=== PATIENT | female | born 1935 | race Caucasian/White ===

== ENCOUNTER 2019-04-16 14:12 | Outpatient (CLI) | payer MEDICARE, SELFPAY ==
--- NOTE | ~2019-04-16 | CT_ITS ---
EXAMINATION: CT abdomen pelvis wo con EXAM DATE: 04/16/2019 14:53 INDICATION: Right flank pain. TECHNIQUE: Spiral CT of the abdomen and pelvis was performed without contrast. Axial, coronal and sag ittal images were reviewed. The dose-length product (DLP) for this examination was 367.06 mGy-cm. T he exposure was tailored according to patient size (auto mA exposure control), and iterative reconstr uction (ASIR) was used as additional dose reduction technique. There is no prior study for compariso n. FINDINGS: Portal and splenic veins are patent. Kidneys enhance symmetrically. There is no hydroneph rosis. The uterus is unremarkable. The bladder is unremarkable. There is a left adrenal gland le nel measuring 3.5 cm, 15 Hounsfield units which is slightly higher than meeting criteria for adenoma , although is still could be a lipid poor adenoma. Gallbladder is unremarkable. No biliary obstruct ion. There is no retroperitoneal or pelvic lymphadenopathy. There is mild to moderate scattered ar teriosclerotic disease. The appendix is normal. The stomach and small bowel are unremarkable. There is moderate amount of c olonic stool. No free intraperitoneal gas. The heart is normal in size. There are no pericardial or pleural effusions. Small amount of basilar opacities likely postinfectious residua. There are n o osteoblastic or osteolytic lesions identified. IMPRESSION: 1. No nephrolithiasis, hydronephrosis or acute intra-abdominal findings. 2. Left adrenal 3.5 cm lesion most likely adenoma but adrenal CT without and with contrast would be confirmatory. 3. Moderate amount of colonic stool. Reviewed, dictated and finalized at location A. NING SPECIALIST IMPRESSION: 1. No nephrolithiasis, hydronephrosis or acute intra-abdominal findings. 2. Left adrenal 3.5 cm lesion most likely adenoma but adrenal CT without and w ith contrast would be confirmatory. 3. Moderate amount of colonic stool.
== END 2019-04-16 14:13 | disposition home or self-care (01) ==
PROVIDERS: PCP Family Medicine; Visit Provider Family Medicine
DX: R10.9 Unspecified abdominal pain (principal); E27.9 Disorder of adrenal gland, unspecified
CPT/HCPCS: 74176

== ENCOUNTER → 2019-04-21 08:59 | Outpatient (CLI) | payer MEDICARE, SELFPAY ==
--- NOTE | ~2019-04-21 | XR_ITS ---
XR thoracic spine 3V DATE: 04/21/2019 09:29 INDICATION: Thoracic back TECHNIQUE: AP, lateral, swimmer views COMPARISON: None FINDINGS: There is prominent dextroscoliosis of the thoracic spine. There is prominent diffuse osteopenia. There are multiple compression fracture deformities of the thoracic spine, most pronounced at T9, wit h severe anterior wedging and loss of height of this vertebral body. There is moderate biconcavity of T8, T7, T6 and a minimum. There is mild biconcavity of T11 and T12. No paraspinal soft tissue thickening is evident. There are displaced subacute or old right eighth through 10th rib fractures. IMPRESSION: Multiple compression fracture deformities of the thoracic spine Reviewed, dictated and finalized at location A.
--- NOTE | ~2019-04-21 | XR_ITS ---
XR_[id number]_CR DATE: 04/21/2019 09:29 INDICATION: Rib fractures TECHNIQUE: PA chest. 3 views of the right ribs. COMPARISON: 01/20/2016 portable AP chest FINDINGS: Healing or healed displaced posterolateral right eighth, ninth and 10th rib fractures are n oted. Multiple thoracic spine fractures are noted. Diffuse osteopenia. Mild cardiomegaly. Aortic calcification. No hilar or mediastinal enlargement. No pulmonary infiltrate or consolidation, pleural effusion or pulmonary vascular congestion or pneumo thorax is evident. IMPRESSION: Subacute or old right eighth through 10th rib fractures and multiple thoracic spine fract ures Diffuse osteopenia Mild cardiomegaly Aortic atherosclerosis Reviewed, dictated and finalized at Location A. Reviewed, dictated and finalized at location A. IMPRESSION: Subacute or old right eighth through 10th rib fractures and multipl e thoracic spine fractures Diffuse osteopenia Mild cardiomegaly Aortic atherosclerosis
== END ==
PROVIDERS: PCP Family Medicine; Visit Provider Family Medicine
DX: M54.6 Pain in thoracic spine (principal); Z87.81 Personal history of (healed) traumatic fracture; M85.88 Other specified disorders of bone density and structure, other site; I51.7 Cardiomegaly; I70.0 Atherosclerosis of aorta
CPT/HCPCS: 71101; 72072

== ENCOUNTER 2019-06-17 07:43 | Outpatient (CLI) | payer MEDICARE, SELFPAY ==
--- NOTE | ~2019-06-17 | US_ITS ---
US right upper quadrant INDICATION: Right upper quadrant pain PROCEDURE: Realtime right upper abdominal ultrasound. COMPARISON: CT dated 04/16/2019 FINDINGS: The pancreas is normal without focal mass or pancreatic ductal dilation. Liver echotexture is normal without focal mass or intrahepatic biliary dilatation. There is normal directional flow i n the portal vein. The gallbladder is normal without stones, gallbladder wall thickening or pericholecystic fluid. Comm on bile duct measures 4 mm. No sonographic Smith's sign. IMPRESSION: 1: Normal limited abdominal ultrasound. Reviewed, dictated and finalized at location A.
== END 2019-06-17 07:44 | disposition home or self-care (01) ==
PROVIDERS: PCP Family Medicine; Visit Provider Family Medicine
DX: R10.11 Right upper quadrant pain (principal)
CPT/HCPCS: 76705

== ENCOUNTER 2020-03-10 10:18 | Emergency (ER) | payer MEDICARE, SELFPAY ==
--- NOTE | ~2020-03-10 | XR_ITS ---
CANCELLED REPORT Duplicate dictation. Images and final report on Acc# [id number] and report # [id number] 03/22/2020 EXAMINATION: XR abdomen obstructive series EXAM DATE: 03/10/2020 12:22 INDICATION: Constipation. TECHNIQUE: Frontal upright projection of the upper abdomen, frontal projection of the lower abdomen for interpretation. There is no prior study for comparison. FINDINGS: There is moderate thoracic levoscoliosis, mild to moderate thoracolumbar dextroscoliosis. There is moderate to large amount of colonic stool and gas. No small bowel dilation, nonobstructive bowel gas pattern. There are no suspicious calcifications identified. There is no organomegaly suspected. Lung bases are unremarkable. Old right rib fractures. IMPRESSION: Moderate to large amount of colonic stool. Reviewed, dictated and finalized at location A. 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
--- NOTE | ~2020-03-10 | XR_ITS ---
EXAMINATION: XR abdomen obstructive series DATE: 03/10/2020 12:31 INDICATION: Constipation. TECHNIQUE: Upright and supine views of the abdomen on 3 radiographs were obtained. COMPARISON: CT abdomen and pelvis 04/16/2019 FINDINGS: There are no dilated loops of bowel. There is a large volume of stool in the colon. No free intraperitoneal gas. There are multiple old healed right rib fractures. IMPRESSION: 1. Large volume of stool in the colon. Reviewed, dictated and finalized at location A. ON STOMPER
[2020-03-10 10:42] VITALS: BP 132/68; PULSE 88; RESP 18; TEMP 36.2; O2SAT 98
--- NOTE | 2020-03-10 11:45 | PC.NURSE ---
Patient unable to provide urine specimen at this time. Refusing straight cath, Dr. Vela notified.
--- NOTE | 2020-03-10 11:45 | PC.NURSE ---
Patient unable to provide urine specimen at this time. Refusing straight catheter, Dr. Vela notified.
[2020-03-10 12:54] LABS: Basophils Absolute Auto 0.1 K/mm3 (0.0-0.1); Basophils Percent Auto 0.7 % (0.2-1.2); Eosinophils Absolute Auto 0.2 K/mm3 (0-0.3); Eosinophils Percent Auto 1.7 % (0-4.4); Hematocrit 43.7 % (37.0-47.0); Hemoglobin 14.1 g/dL (12.0-15.0); Immature Granulocyte Absolute 0.05 K/mm3 (0.00-0.031); Immature Granulocyte Percent A 0.5 % (0-0.5); Lymphocytes Absolute Auto 1.57 K/mm3 (0.9-3.2); Lymphocytes Percent Auto 15.9 % (18.3-44.2); Mean Corpuscular HGB Conc 32.3 g/dl (32-36); Mean Corpuscular Hemoglobin 29.9 pg (26-34); Mean Corpuscular Volume 92.8 fl (80-100); Mean Platelet Volume 10.2 fl (7.4-10.4); Monocytes Absolute Auto 0.9 K/mm3 (0.1-0.6); Monocytes Percent Auto 9.4 % (2.6-8.5); Neutrophils Absolute Auto 7.1 K/mm3 (1.3-6.7); Neutrophils Percent Auto 71.8 % (45.5-73.1); Platelet Count Result 214 k/mm3 (150-375); Red Blood Count 4.71 M/mm3 (4.2-5.4); Red Cell Distribution Width 12.6 % (11.5-14.5); White Blood Count 9.9 K/mm3 (4.5-10.0)
[2020-03-10 13:16] LABS: Alanine Aminotransferase 16 U/L (4-35); Alkaline Phosphatase 83 U/L (38-126); Anion Gap 4 mmol/L (8-16); Aspartate Amino Transferase 27 U/L (14-36); Bilirubin,Total 0.5 mg/dL (0.2-1.3); Blood Urea Nitrogen 18 mg/dL (7-17); Calcium 9.4 mg/dL (8.4-10.2); Carbon Dioxide 29 mmol/L (22-30); Chloride 102 mmol/L (98-107); Estimated CRCL calculation 36 ml/min; Estimated Glomerular Filt Rate > 60; Glucose 95 mg/dL (65-105); Potassium 4.4 mmol/L (3.4-5.0); Sodium 135 mmol/L (137-145)
[2020-03-10 13:38] VITALS: BP 131/57; PULSE 83; RESP 18; O2SAT 100
--- NOTE | 2020-03-10 14:06 | ED.ABDPAIN ---
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, and is worried that her mom had this and had to have an operation She has not had any rectal bleeding she has not had a fever her appetite is okay No prior abdominal operations of any sort Pertinent past history: constipation Onset (ago): day(s) Related Data Home Medications Medication Instructions Recorded Confirmed No Home Medications 03/10/20 03/10/20 Allergies Allergy/AdvReac Type Severity Reaction Status Date / Time Penicillins Allergy Intermediate Palpitations Verified 03/10/20 10:48 RASH Review of Systems Review of Systems: All systems reviewed & are unremarkable except as noted in HPI and below Constitutional: Constitutional: Denies chills, Denies fatigue, Denies fever(s), Denies headache(s) and Denies weakness Eyes: Eyes: Reports no additional eye complaints and Denies change in vision ENT: Denies headache(s) Cardiovascular: Cardiovascular: Denies chest pain, Denies leg edema, Denies palpitations and Denies dyspnea Respiratory: Respiratory: Denies cough and Denies dyspnea Gastrointestinal: Gastrointestinal: Denies abdominal pain, Denies bloating, Reports constipation, Denies diarrhea, Denies nausea and Denies vomiting Genitourinary: Genitourinary: Denies hematuria, Denies urinary frequency, Reports nocturia and Denies dysuria Musculoskeletal: Musculoskeletal: Denies deformity, Denies arthralgias, Denies joint swelling, Denies muscle weakness and Denies numbness Integumentary/Breasts: Skin/Breast: Denies rash and Denies wounds Neurologic: Denies headache(s), Denies focal weakness, Denies numbness and Denies weakness Psychiatric: Psychiatric: Reports no additional psychiatric complaints Endocrine: Endocrine: Denies fatigue and Denies palpitations Hematologic/Lymphatic: Hematologic/Lymphatic: Denies easy bleeding and Denies easy bruising Allergic/Immunologic: Allergic/Immunologic: Denies wheezing [facility] Social History Social History Gender identity (if verbalized by the patient): Female Exam Const: General: well developed, alert and awake Orientation/consciousness: patient oriented x3 (alert) Limitations: no limitations Other: Elderly, frail HENMT: Head: normocephalic and atraumatic Ears: external ears normal General nose exam: No nasal discharge present and no epistaxis Face and sinus: face symmetric Eyes: Conjunctivae: conjunctivae normal Sclera: sclerae normal EOM: EOMs intact bilaterally Neck: Neck: normal visual inspection, supple and no JVD Chest: Chest palpation & inspection: deferred Resp: Effort & Inspection: normal respiratory effort Auscultation: clear to auscultation bilaterally, no rales, no rhonchi, no wheezes and other (BS =) Cardio: Rate: regular rate Rhythm: regular rhythm Heart sounds: no gallops and no murmurs GI: Inspection: normal to inspection GI Palp: Yes Soft to palpation and No Tenderness to palpation present (GI) Other: There is no tenderness, there does seem to be some palpable stool along the course of the descending colon on the left side On rectal there is a lot of firm stool but it is not really a large impacted mass but rather it seems like a bunch of separate lifesaver sized chunks : General: Yes no CVA tenderness Back/Spine/Pelvis: Back: no CVA tenderness Thoracic/Lumbar Spine: thoracic and lumbar spine norm
--- NOTE | 2020-03-10 15:30 | PC.NURSE ---
Patient using BSC, small BM noted.
[2020-03-10] MEDS: MAGNESIUM CITRATE 300 ML BTL PO (15:59)
--- NOTE | 2020-03-10 16:47 | PC.NURSE ---
Patient had large BM at this time. Refusing miralax and dulcolax suppository at this time.
[2020-03-10 16:53] LABS: Free T4 Free Thyroxine 1.29 ng/mL (0.78-2.19)
[2020-03-10 18:28] VITALS: BP 128/64; PULSE 88; RESP 20; O2SAT 99
== END 2020-03-10 18:31 | disposition home or self-care (01) ==
PROVIDERS: Emergency Provider Emergency Medicine; PCP Family Medicine
DX: K59.00 Constipation, unspecified (principal)
CPT/HCPCS: 36415; 74019; 80053; 84439; 84443; 85025; 99283; A9270

== ENCOUNTER 2022-02-07 09:06 | Outpatient (CLI) | payer MEDICARE, SELFPAY ==
--- NOTE | ~2022-02-07 | XR_ITS ---
Clinical Indication: Shortness of breath PA and lateral views of the chest: Comparison: 01/20/2016 Findings: The lungs are clear, without evidence of focal consolidation or pleural effusion. Cardiome diastinal silhouette is within normal limits. There is kyphosis of the thoracic spine with severe com pression deformity of what is probably T12. Moderate to severe compression fracture of what is probab ly T8 also present.. Impression: Clear lungs. Thoracic spine compression fractures, probably of T8 and T12. Reviewed, dictated and finalized at location M. 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 Thoracic spine compression fractures, probably of T8 and T12.
== END 2022-02-07 09:07 | disposition home or self-care (01) ==
PROVIDERS: PCP Family Medicine; Visit Provider Family Medicine
DX: R06.02 Shortness of breath (principal); S22.060A Wedge compression fracture of T7-T8 vertebra, initial encounter for closed fracture; S22.080A Wedge compression fracture of T11-T12 vertebra, initial encounter for closed fracture
CPT/HCPCS: 71046

== ENCOUNTER → 2022-06-19 09:23 | Outpatient (CLI) | payer MEDICARE, SELFPAY ==
--- NOTE | ~2022-06-19 | DEXA_ITS ---
Bone Density Report Name: ROXANNE HENDRICKSON I Age: 87 Sex: Female Ethnicity: White Date of : 1935 Indication: postmenopausal osteoporosis; prior fracture; Referring Provider: MO REEDER Study: Bone densitometry was performed. Exam Date: June 19, 2022 Accession number: [id number] Bone Density: Region BMD T-score Z-score Classification AP Spine (L1-L4) 0.746 -2.7 0.1 Osteoporosis Femoral Neck (Left) 0.576 -2.5 0.1 Osteoporosis Total Hip (Left) 0.786 -1.3 1.1 Osteopenia Femoral Neck (Right) 0.572 -2.5 0.0 Osteoporosis Total Hip (Right) 0.752 -1.6 0.8 Osteopenia Total Hip Mean 0.769 -1.5 1.0 Osteopenia World Health Organization criteria for BMD impression classify patients as: Normal (T-score at or above -1.0), Osteopenia (T-score between -1.0 and -2.5), or Osteoporosis (T-score at or below -2.5). 10-year Fracture Risk: FRAX not reported because: Some T-score for Spine Total or Hip Total or Femoral Neck at or below -2.5 Prior hip or vertebral fracture Previous Exams: Region Exam Age BMD T-score BMD Change BMD Change Date g/cm2 vs Baseline vs Previous AP Spine(L1-L4) 06/19/2022 87 0.746 -2.7 -0.009 0.050* 09/20/2009 74 0.695 -3.2 -0.059 -0.032* 08/24/2007 72 0.728 -2.9 -0.027 -0.007 07/10/2005 70 0.735 -2.8 -0.020 -0.020 04/22/2003 68 0.755 -2.7 Total Hip(Left) 06/19/2022 87 0.786 -1.3 0.011 -0.017 09/20/2009 74 0.803 -1.1 0.028 -0.048* 08/24/2007 72 0.852 -0.7 0.077 -0.083* 07/10/2005 70 0.934 -0.1 0.159 0.159 04/22/2003 68 0.775 -1.4 Total Hip(Right) 06/19/2022 87 0.752 -1.6 -0.025 -0.065* 09/20/2009 74 0.817 -1.0 0.039 -0.059* 08/24/2007 72 0.876 -0.5 0.098 -0.059* 07/10/2005 70 0.935 -0.1 0.158 0.158 04/22/2003 68 0.777 -1.3 *Denotes significance at 95% confidence level, LSC for AP Spine = 0.022 g/cm2, LSC for Total Hip = 0.027 g/cm2 Clinical Information Provided by Patient: Have had a previous hip or vertebral fracture Has had a low trauma fracture Has used the following medications: Vitamin D, MTV Patient maximum height was 55.0 Menopause Age: 51 No regular weight bearing exercise Onset of menses at age 12 Number of children 4 Impression: T
== END ==
PROVIDERS: PCP Family Medicine; Visit Provider Family Medicine
DX: M81.0 Age-related osteoporosis without current pathological fracture (principal); M85.852 Other specified disorders of bone density and structure, left thigh; M85.851 Other specified disorders of bone density and structure, right thigh
CPT/HCPCS: 77080

== ENCOUNTER 2023-04-05 09:57 | Inpatient (IN) | payer MEDICARE, SELFPAY ==
[2023-04-05] VITALS (14 sets, daily range): BP systolic 101–152; BP diastolic 67–103; PULSE 81–116; RESP 16–29; TEMP 35.9–36.6; O2SAT 92–98; BMI 25.4
--- NOTE | ~2023-04-05 | NM_ITS ---
EXAMINATION: NM glory stress w perfusion DATE: 04/09/2023 13:07 INDICATION: Chest pain. New onset congestive heart failure. TECHNIQUE: Rest images were obtained following intravenous administration of 9.2 mCi Tc99m tetrofosmi n (Myoview). The patient was infused intravenously with Lexiscan (Regadenoson). Then, 32.8 mCi Tc99m tetrofosmin (Myoview) was administered intravenously, and stress images were obtained. Data was recon structed into short axis and horizontal and vertical long axis SPECT images. Gated SPECT images were also obtained. COMPARISON: None. FINDINGS: Large severe perfusion defect involving the apical segment and all of the periapical and mi d segments and extending with less severity into the basilar anteroseptal and basilar posterior septa l segments. This is reversible in the mid anterior and mid anterolateral segments consistent with isc hemia. The remainder is either nonreversible or largely nonreversible consistent with infarct with godinez perimposed mild partially reversible ischemia involving the apical segments and the mid inferior, inf eroseptal and inferolateral segments. There is left ventricular enlargement with calculated end-diast olic volume of 210 mL. There is dyskinesis at the apex, periapical and mid septal segments with hypok inesis in the remaining mid segments. Left ventricular ejection fraction measures 32%. IMPRESSION: 1. Large region of moderate to severe decreased perfusion apical predominance consistent with infarct with superimposed mild ischemia involving the majority of the left anterior descending coronary loli ry vascular distribution and significant portions of both the circumflex and right coronary artery va scular distributions as detailed above. 2. Left ventricular enlargement with moderately decreased ejection fraction measuring 32%. Reviewed, dictated and finalized at location B. GER CHILD IMPRESSION: 1. Large region of moderate to severe decreased perfusion apical predominance c onsistent with infarct with superimposed mild ischemia involving the majority o f the left anterior descending coronary artery vascular distribution and signif icant portions of both the circumflex and right coronary artery vascular distri butions as detailed above. 2. Left ventricular enlargement with moderately decreased ejection fraction silvestre suring 32%.
--- NOTE | ~2023-04-05 | XR_ITS ---
XR chest 2V 04/05/2023 11:29 Indication: Shortness of breath Procedure: AP and lateral views of the chest Comparison: 02/07/2022 Findings: Cardiomegaly with interstitial edema. Small pleural effusions. No pneumothorax. No acute os seous abnormality. Impression: 1: Cardiomegaly with interstitial edema. 2: Small pleural effusions. Reviewed, dictated and finalized at location A. 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 2: Small pleural effusions.
--- NOTE | ~2023-04-05 | US_ITS ---
EXAMINATION: US venous doppler [facility] DATE: 04/06/2023 16:19 INDICATION: Bilateral lower extremity edema . TECHNIQUE: Grayscale images without and with compression and Doppler images of the bilateral lower ex tremity veins were obtained. COMPARISON: None FINDINGS: The right common femoral vein, profunda (deep) femoral vein, femoral vein, popliteal vein, peroneal v ein, posterior tibial veins, gastrocnemius vein, and greater saphenous vein are patent. The left common femoral vein, profunda (deep) femoral vein, femoral vein, popliteal vein, peroneal v ein, posterior tibial veins, gastrocnemius vein, and greater saphenous vein are patent. IMPRESSION: Patent bilateral lower extremity veins. No evidence of deep venous thrombosis. Reviewed, dictated and finalized at location K. ER
--- NOTE | ~2023-04-05 | XR_ITS ---
Portable chest x-ray Comparison: 04/05/2023 Clinical History: CHF Findings: Probable minimal bilateral pleural effusions and minimal bibasilar pulmonary edema. Cardi omediastinal silhouette is stable. Bones and soft tissues are unremarkable. Impression: Probable minimal pleural effusions and minimal bibasilar pulmonary edema. Findings are improved from prior exam. Reviewed, dictated and finalized at location . 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 Findi ngs are improved from prior exam.
--- NOTE | ~2023-04-05 | CT_ITS ---
EXAMINATION: CTA chest PE protocol DATE: 04/05/2023 12:44 IMPROVEMENT MANAGER INDICATION: Shortness of breath. Elevated d-dimer. TECHNIQUE: Computed tomographic angiography (CTA) of the chest was performed with 100 mL Omnipaque-35 0 intravenous contrast. The dose-length product was 194.00 mGy-cm. Maximum intensity projection 3D-re constructions of the aorta and other arteries were constructed by the technologist on a separate work station. Automated exposure control and iterative reconstruction technique were employed. COMPARISON: Comparison to multiple prior studies sequentially, with oldest reviewed study dated 01/11. . FINDINGS: Cardiomegaly. Moderate right and small left pleural effusions. No thoracic lymphadenopathy. The study is technically adequate without evidence for pulmonary embolism. No thoracic lymphadenopat hy. Bibasilar dependent atelectasis. No pneumothorax. No evidence for pulmonary embolism. There are patchy groundglass opacities with interlobular septal t hickening. Subpleural band present left upper lobe. Findings suspicious for edema. There are is chron ic burst fractures of T9 and T11. There is mild compression deformity of T8 and T11, likely chronic. IMPRESSION: 1. No evidence for pulmonary embolism. 2: Cardiomegaly with probable mild interstitial edema. 3: Bilateral pleural effusions, right greater than left. 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 Reviewed, dictated and finalized at location A. OVEMENT MANAGER
--- NOTE | 2023-04-05 11:16 | ECG_ITS ---
Measurements Intervals Brothers Rate: 90 P: 67 NV: 203 QRS: -22 QRSD: 132 T: 140 QT: 398 QTc: 488 Interpretive Statements SINUS RHYTHM LEFT BUNDLE BRANCH BLOCK [120+ ms QRS DURATION, 80+ ms Q/S IN V1/V2, 85+ ms R IN I/aVL/V5/V6] ABNORMAL ECG NO PREVIOUS ECG AVAILABLE FOR COMPARISON Electronically Signed On 04-05-2023 14:45:09 INTERNIST by Valentín Rainey M.D.
--- NOTE | 2023-04-05 11:26 | ED.SOB ---
HPI - SOB/Dyspnea General Chief Complaint: Shortness of Breath/Dyspnea <Nikki Sanchez PA-C - Last Filed: 04/06/23 09:22> Stated Complaint: sob <ROOSEVELT Murphy Last Filed: 04/06/23 09:22> Time Seen by Provider: 04/05/23 11:16 <ROOSEVELT Murphy Last Filed: 04/06/23 09:22> Source: patient <ROOSEVELT Murphy Last Filed: 04/06/23 09:22> Mode of arrival: ambulatory <ROOSEVELT Murphy Last Filed: 04/06/23 09:22> Limitations: no limitations <ROOSEVELT Murphy Last Filed: 04/06/23 09:22> History of Present Illness HPI Narrative: This is a 88-year-old female that presents to the emergency department for shortness of breath. Ongoing over the last couple of weeks. Associated with lower extremity edema. Reports she was giving a prescription for furosemide by her PCP, but has not taken it. Denies fever, cough, chest pain. <ROOSEVELT Murphy Last Filed: 04/06/23 09:22> Related Data Home Medications: Home Medications Medication Instructions Recorded Confirmed cholecalciferol (vitamin D3) 25 25 mcg PO DAILY 03/26/22 04/05/23 mcg (1,000 unit) capsule glucosamine-chondroitin 500 mg-400 1 cap PO DAILY 03/26/22 04/05/23 mg capsule wosbhffl-utw-ntcnk ac 400 400 tablet PO DAILY 03/26/22 04/05/23 mcg-calcium carb 500 mg-vit K1 20 mcg tablet (Women's 50 Plus Multivitamin) <Nikki Sanchez PA-C - Last Filed: 04/06/23 09:22> Allergies/Adverse Reactions: Allergies Allergy/AdvReac Type Severity Reaction Status Date / Time Penicillins Allergy Intermediate Palpitations Verified 04/05/23 11:40 RASH lidocaine [From Xylocaine] Allergy Mild Headache Verified 04/05/23 11:40 <ROOSEVELT Murphy Last Filed: 04/06/23 09:22> Review of Systems Review of Systems: CONSTITUTIONAL: Denies fever CARDIOVASCULAR: Reports edema. Denies chest pain RESPIRATORY: Reports dyspnea. 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 Burst fracture of thoracic vertebra Chronic burst fracture at L1. Disorder of adrenal gland, unspecified Elevated blood pressure reading Other kyphosis, thoracic region Primary generalized (osteo)arthritis Pure hypercholesterolemia, unspecified Sciatica, left side <Nikki Sanchez PA-C - Last Filed: 04/06/23 09:22> Surgical History Surgical History: Surgical History History of cataract extraction History of ovarian cystectomy History of right breast biopsy Benign pathology. History of surgery on left wrist (01/2016) Reduction stabilization of left distal radius fracture with external fixator device. <Nikki Sanchez PA-C - Last Filed: 04/06/23 09:22> Family History Family History: Family History Father Malignant neoplasm of prostate Mother Stomach cancer Sibling Autoimmune disease Sibling Amyotrophic lateral sclerosis Sibling Brain cancer <Nikki Sanchez PA-C - Last Filed: 04/06/23 09:22> Social History Social History: Social History Social History: Surrogate medical decision maker: Jair Matta, son. Code status: Full code. Smoking status: Former smoker Second hand tobacco smoke exposure: No Alcohol intake: never Substance use: never Substance use type: does not use Do You Feel Safe in your Home?: Yes Lack of Transportation: No Lack of
[2023-04-05 11:56] LABS: Basophils Percent Auto 0.6 % (0.2-1.2); Eosinophils Absolute Auto 0.1 K/mm3 (0-0.3); Eosinophils Percent Auto 1.5 % (0-4.4); Hematocrit 46.5 % (37.0-47.0); Hemoglobin 14.3 g/dL (12.0-15.0); Immature Granulocyte Absolute 0.02 K/mm3 (0.00-0.031); Immature Granulocyte Percent A 0.3 % (0-0.5); Lymphocytes Absolute Auto 1.11 K/mm3 (0.9-3.2); Lymphocytes Percent Auto 16.4 % (18.3-44.2); Mean Corpuscular HGB Conc 30.8 g/dl (32-36); Mean Corpuscular Hemoglobin 29.5 pg (26-34); Mean Corpuscular Volume 95.9 fl (80-100); Monocytes Absolute Auto 0.6 K/mm3 (0.1-0.6); Monocytes Percent Auto 8.7 % (2.6-8.5); Neutrophils Absolute Auto 4.9 K/mm3 (1.3-6.7); Neutrophils Percent Auto 72.5 % (45.5-73.1); Platelet Count Result 182 k/mm3 (150-375); Red Blood Count 4.85 M/mm3 (4.2-5.4); Red Cell Distribution Width 13.4 % (11.5-14.5); White Blood Count 6.8 K/mm3 (4.5-10.0)
[2023-04-05 12:07] LABS: Alanine Aminotransferase 30 U/L (6-35); Alkaline Phosphatase 86 U/L (38-126); Anion Gap 6 mmol/L (8-16); Aspartate Amino Transferase 33 U/L (14-36); Bilirubin,Total 0.9 mg/dL (0.2-1.3); Blood Urea Nitrogen 30 mg/dL (7-17); Calcium 9.5 mg/dL (8.4-10.2); Carbon Dioxide 27 mmol/L (22-30); Chloride 107 mmol/L (98-107); Estimated Glomerular Filt Rate 59; Glucose 100 mg/dL (65-110); Potassium 4.5 mmol/L (3.4-5.0); Prothrombin Time 14.2 Seconds (11.1-14.7); Sodium 140 mmol/L (137-145)
[2023-04-05 12:08] LABS: Partial Thromboplastin Time 25.3 SECONDS (22.3-36.8)
[2023-04-05 12:11] LABS: D Dimer 1.18 ug/mL (<0.48)
[2023-04-05 12:18] LABS: NT Pro B Type Natriuretic Pept 10400 pg/mL (19.9-100); Troponin I 0.019 ng/mL (0.000-0.034)
[2023-04-05] MEDS: FUROSEMIDE INJ 40 MG/4 ML VIAL IV PUSH (13:02)
--- NOTE | 2023-04-05 15:05 | PM.IMHP ---
H&P: HPI History of Present Illness Date/Time: 04/05/23 15:05 Chief Complaint: Shortness of breath. Narrative: This is an 88-year-old female who has been remarkably healthy over the years with osteoarthritis, osteoporosis, kyphoscoliosis, and hypercholesterolemia who presented to the emergency department for evaluation of shortness of breath. The patient provides the following history. Right around the beginning of the year she started to notice that her ankles would swell throughout the day and become pretty swollen by a nighttime. She has also noticed that she is getting short of breath with exertion, sometime she is short of breath when talking for extended periods of time. She saw her doctor for the symptoms at the end of February and he started her on furosemide 20 mg once a day for a few days to see if that would help although she did not case picker the prescription as she did not know 1 was called in for her. An echocardiogram was also ordered but she has yet to have that done. Her symptoms have gotten progressively worse and she came in today for evaluation. With further questioning she does mention having occasional heaviness in the chest (no pattern and she denies aggravating and alleviating factors) and admits to feeling more tired the last month or so. She is slower to get around the home and perform her daily chores. She denies syncope, near syncope, exertional chest pain, orthopnea, pleuritic pain, palpitations, nausea, vomiting, sweats, and calf pain. In the ED: She was afebrile on arrival with stable vital signs. Labs were significant for a D-dimer 1.18, troponin 0.019, proBNP 42809, albumin 4.0. Chest CTA was negative for pulmonary embolism but did show cardiomegaly with probable mild interstitial edema and bilateral pleural effusions. She received IV furosemide 40 mg x 1 and she is being admitted in this setting for further treatment and evaluation. Review of Systems Review of Systems: Twelve systems were reviewed. No fever, chills, or sweats. No recent cold or flu symptoms. Denies orthopnea. Occasionally she will wake herself up snoring. Appetite has been good. Weight is stable. Except as documented, all other systems were reviewed and are negative. 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 Burst fracture of thoracic vertebra Chronic burst fracture at L1. Disorder of adrenal gland, unspecified Elevated blood pressure reading Other kyphosis, thoracic region Primary generalized (osteo)arthritis Pure hypercholesterolemia, unspecified Sciatica, left side Surgical History Surgical History History of cataract extraction History of ovarian cystectomy History of right breast biopsy Benign pathology. History of surgery on left wrist (01/2016) Reduction stabilization of left distal radius fracture with external fixator device. Family History Family History Father Malignant neoplasm of prostate Mother Stomach cancer Sibling Autoimmune disease Sibling Amyotrophic lateral sclerosis Sibling Brain cancer Social History Social History Social History: Surrogate medical decision maker: Jair Matta, son. Code status: Full code. Smoking status: Former smoker Second hand tobacco smoke exposure: No Alcohol intake: never Substance use: never Substance use type: does not use Do You Feel Safe in your Home?: Yes Lack of Transportation: No Lack of Food: Never True Current Housing: I Have Housing Concerned About Future Housing: No Difficulty Paying Gas/Electric Bills: No Difficulty Paying
--- NOTE | 2023-04-05 15:45 | ADMGEN ---
This patient, Gosia Matta, was admitted to [facility] Surg Room 326-01. Patient/family oriented to hospital policies and general routines including ID bracelet, bed and alarms, visiting hours, pain management, procedures, bathroom and other care routines, personal items, smoking policy, room service/diet, and visiting hours. Information on how to activate the Rapid Response Team has been discussed. Patient/Family are encouraged to report perceived risks to care and to ask questions if they do not understand what they are told or what they should do.
[2023-04-05] MEDS: FUROSEMIDE INJ 40 MG/4 ML VIAL 20 MG IV PUSH (17:15)
[2023-04-06] VITALS (8 sets, daily range): BP systolic 105–123; BP diastolic 46–73; PULSE 76–86; RESP 18–20; TEMP 35.5–36.9; O2SAT 93–98
[2023-04-06 07:02] LABS: Anion Gap 4 mmol/L (8-16); Blood Urea Nitrogen 30 mg/dL (7-17); Calcium 8.7 mg/dL (8.4-10.2); Carbon Dioxide 28 mmol/L (22-30); Chloride 105 mmol/L (98-107); Estimated Glomerular Filt Rate 52; Glucose 98 mg/dL (65-110); Magnesium 2.3 mg/dL (1.6-2.3); Potassium 3.6 mmol/L (3.4-5.0); Sodium 137 mmol/L (137-145)
[2023-04-06] MEDS: FUROSEMIDE INJ 40 MG/4 ML VIAL 20 MG IV PUSH ×2 (08:04→16:33)
[2023-04-06] MEDS: ENOXAPARIN 40 MG/0.4 ML SYRINGE SUB-Q (08:05)
[2023-04-06] MEDS: CHOLECALCIFEROL 1,000 UNITS TABLET 1000 UNITS PO (08:06)
[2023-04-06] MEDS: THERAPEUTIC MULTIVITAMINS/MINERALS TAB (*BKC) 1 TABLET PO (08:06)
[2023-04-06 11:05] LABS: Free T4 Free Thyroxine Reflex 1.49 ng/dL (0.78-2.19)
--- NOTE | 2023-04-06 12:24 | PM.IMPN ---
Progress Note: A&P Assessment and Plan (1) Suspected congestive heart failure: Code(s): R09.89 - Other specified symptoms and signs involving the circulatory and respiratory systems Status: Acute (2) Pleural effusion: Code(s): J90 - Pleural effusion, not elsewhere classified Status: Acute (3) Cardiomegaly: Code(s): I51.7 - Cardiomegaly Status: Acute (4) Elevated blood pressure reading: Code(s): R03.0 - Elevated blood-pressure reading, without diagnosis of hypertension Status: Acute Plan The patient presented to the emergency department for evaluation of increasing swelling and shortness a breath as detailed in HPI. Right around the beginning of the year she started to notice that her ankles were swell throughout the day and become very swollen by the nighttime. She has also noticed that she is getting short of breath with exertion sometimes she is short of breath when talking for extended periods of time. She saw For the symptoms the end of February and see was started her on furosemide 20 mg day for few days to see if that will help although she did not fiber picker the prescription as she did not know Jocelyne are not. An echocardiogram was also ordered but she has yet to have that done. See yet progressively got worse and hence came to the ER for evaluation. Occasionally have a heaviness of the chest with no pattern of aggravating at noon admits to feeling more tired over the last month or so. In the ED she was a vitals. D-dimer was 1.18 troponin was 0.019 [place] [address]29 CTA of the chest was done which negative for PE but did cardiomegaly with probable mild interstitial edema and bilateral pleural effusion. She received a dose of Lasix in the ER further treatment. Continue diuresis with with furosemide 20 mg IV b.i.d. with close monitoring of volume status, renal function, and electrolytes. Echocardiogram ordered and currently pending. 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 No leg swelling. Mild cough since past few weeks. Review of Systems Review of Systems: All systems reviewed & are unremarkable except as noted in HPI and below Exam Narrative: General: Well-developed, elderly female sitting up in bed in no acute distress. HEENT: Wearing corrective lenses. PERRL, EOMI. Sclera anicteric. Oral mucosa moist. Neck: Supple. No significant JVD. Respiratory: Respirations are nonlabored. Lung sounds are a bit diminished at the bases Cardiovascular: Regular rate and rhythm with S1-S2. Gastrointestinal: Abdomen is soft, nontender, and nondistended with positive bowel sounds. Skin: Warm and dry. No rash or lesions on limited exam. Extremities: No cyanosis or clubbing. 1+ josh ankle edema bilaterally. Radial and pedal pulses intact. Neurological: Alert. Cranial nerves 2-12 are grossly intact. No gross focal deficits to casual conversation. Psychiatric: Pleasant and cooperative with normal mood and affect. Judgment and insight intact. Objective Data Vital Signs Vital Signs: Vital Signs - 24 hr 04/05/23 12:47 04/05/23 15:34 04/05/23 16:11 Temperature Pulse Rate 100 88 88 Respiratory Rate 20 18 Blood Pressure 152/103 H 141/98 H Pulse Oximetry 93 98 Oxygen Delivery 04/05/23 16:11 04/05/23 16:11 04/05/23 16:32 Temperature 97.2 F L Pulse Rate 116 H 81 Respiratory Rate 20 Blood Pressure 116/74 Pulse Oximetry 97 Oxygen Delivery Room Air 04/05/23 20:00 04/05/23 20:25 04/05/23 20:00 Temperature 96.6 F L Pulse Rate 88 84 Respiratory Rate 16 Blood Pressure 128/76 Pulse Oximetry 96 Oxygen Delivery Room Air 04/06/23 00:00 04/06/23 00:00 04/06/23 04:00 Temperature 97.2 F L Pulse Rate 79 76 80 Respiratory Rate 18 Blood Press
[2023-04-06 14:37] LABS: Total Triiodothyronine (T3) 1.14 NG/ML (0.97-1.69)
[2023-04-07] VITALS (10 sets, daily range): BP systolic 110–128; BP diastolic 67–84; PULSE 81–99; RESP 16–22; TEMP 36.6–37.3; O2SAT 95–100
--- NOTE | 2023-04-07 | ECHO_ITS ---
Patient Info Name: Gosia Matta Age: 88 years : 1935 Gender: Female Ht: 59 in Wt: 125 lbs BSA: 1.55 m2 HR: 81 bpm BP: 120 / 67 mmHg Heart Rhythm: Sinus Rhythm Technical Quality: Fair Exam Date: 04/07/2023 3:59 PM Exam Location: Echo Lab Patient Status: Outpatient Admit Date: 04/05/2023 Staff Ordering Physician: Estefania Boles PA-C Inspector Rag Sorting: Attending Provider: Jose Vivas MD Referring Physician: Elvi DOBSON; Exam Type: CA echo dop color flow w con Study Info Indications I51.7 - Cardiomegaly Complete two-dimensional, color flow and Doppler transthoracic echocardiogram is performed with contrast to opacify the left ventricle and to improve the deliniation of the left ventricle endocardial borders. Contrast/Agitated Saline Contrast/Ag. Saline: Definity Amount: 1.00 ml Existing IV Access: Yes IV Access Condition: patent with no signs of infiltration Summary 1. Four-chamber cardiac dilation with severely reduced left and right ventricular systolic function. 2. Marked biatrial dilation. 3. Trivial mitral regurgitation resulting from annular dilation. 4. Mild to moderate tricuspid regurgitation also from annular dilation. Left Ventricular Outflow Tract Name Value Normal LVOT 2D LVOT Diameter 1.95 cm LVOT Doppler LVOT Peak Gradient 2 mmHg LVOT Mean Gradient 1 mmHg LVOT VTI 14.48 cm LVOT VTI/AV VTI Ratio 0.62 LVOT Stroke Volume 43.17 ml LVOT CO 3.33 l/min LVOT CI 2.15 L/min/m2 Pulmonic Valve Name Value Normal PV Doppler PV Peak Gradient 2 mmHg PV Regurgitation Doppler OK Peak End Diastolic Velocity 74.67 cm/s Mitral Valve Name Value Normal MV Doppler MV Decel Bertie 515.26 cm/s2 MV PHT 0 s MV Area (PHT) 6.69 cm2 4.00-5.00 MV Diastolic Function MV E Peak Velocity 58.46 cm/s MV A Peak Velocity 56.31 cm/s MV E/A 1.04 MV Decel Time 0 s MV Annular TDI MV E/e' (Septal) 15.83 <=8.00 MV E/e' (Lateral) 5.93 <=8.00 MV E/e' (Ave
[2023-04-07 06:26] LABS: Basophils Percent Auto 0.5 % (0.2-1.2); Eosinophils Absolute Auto 0.2 K/mm3 (0-0.3); Eosinophils Percent Auto 2.4 % (0-4.4); Hematocrit 43.4 % (37.0-47.0); Hemoglobin 13.6 g/dL (12.0-15.0); Immature Granulocyte Absolute 0.02 K/mm3 (0.00-0.031); Immature Granulocyte Percent A 0.3 % (0-0.5); Lymphocytes Absolute Auto 1.37 K/mm3 (0.9-3.2); Lymphocytes Percent Auto 20.9 % (18.3-44.2); Mean Corpuscular HGB Conc 31.3 g/dl (32-36); Mean Corpuscular Hemoglobin 29.6 pg (26-34); Mean Corpuscular Volume 94.6 fl (80-100); Mean Platelet Volume 12.1 fl (7.4-10.4); Monocytes Absolute Auto 0.7 K/mm3 (0.1-0.6); Monocytes Percent Auto 10.5 % (2.6-8.5); Neutrophils Absolute Auto 4.3 K/mm3 (1.3-6.7); Neutrophils Percent Auto 65.4 % (45.5-73.1); Platelet Count Result 183 k/mm3 (150-375); Red Blood Count 4.59 M/mm3 (4.2-5.4); Red Cell Distribution Width 13.2 % (11.5-14.5); White Blood Count 6.6 K/mm3 (4.5-10.0)
[2023-04-07 06:36] LABS: Alanine Aminotransferase 23 U/L (6-35); Albumin Level 3.5 g/dL (3.5-5.1); Alkaline Phosphatase 71 U/L (38-126); Anion Gap 5 mmol/L (8-16); Aspartate Amino Transferase 36 U/L (14-36); Bilirubin,Total 0.9 mg/dL (0.2-1.3); Blood Urea Nitrogen 30 mg/dL (7-17); Calcium 8.5 mg/dL (8.4-10.2); Carbon Dioxide 28 mmol/L (22-30); Chloride 104 mmol/L (98-107); Estimated Glomerular Filt Rate 47; Glucose 92 mg/dL (65-110); Magnesium 2.3 mg/dL (1.6-2.3); Potassium 3.3 mmol/L (3.4-5.0); Sodium 137 mmol/L (137-145)
[2023-04-07] MEDS: POTASSIUM CHLORIDE 20 MEQ ER TABLET 40 MEQ PO (07:56)
[2023-04-07] MEDS: THERAPEUTIC MULTIVITAMINS/MINERALS TAB (*BKC) 1 TABLET PO (07:56)
[2023-04-07] MEDS: CHOLECALCIFEROL 1,000 UNITS TABLET 1000 UNITS PO (07:56)
[2023-04-07] MEDS: FUROSEMIDE INJ 40 MG/4 ML VIAL 20 MG IV PUSH ×2 (07:57→17:04)
[2023-04-07] MEDS: ENOXAPARIN 40 MG/0.4 ML SYRINGE SUB-Q (07:57)
--- NOTE | 2023-04-07 13:20 | PM.IMPN ---
Progress Note: A&P Assessment and Plan (1) Suspected congestive heart failure: Code(s): R09.89 - Other specified symptoms and signs involving the circulatory and respiratory systems Status: Acute (2) Pleural effusion: Code(s): J90 - Pleural effusion, not elsewhere classified Status: Acute (3) Cardiomegaly: Code(s): I51.7 - Cardiomegaly Status: Acute (4) Elevated blood pressure reading: Code(s): R03.0 - Elevated blood-pressure reading, without diagnosis of hypertension Status: Acute Plan The patient presented to the emergency department for evaluation of increasing swelling and shortness a breath as detailed in HPI. Right around the beginning of the year she started to notice that her ankles were swell throughout the day and become very swollen by the nighttime. She has also noticed that she is getting short of breath with exertion sometimes she is short of breath when talking for extended periods of time. She saw For the symptoms the end of February and see was started her on furosemide 20 mg day for few days to see if that will help although she did not fruit picker the prescription as she did not know Jocelyne are not. An echocardiogram was also ordered but she has yet to have that done. See yet progressively got worse and hence came to the ER for evaluation. Occasionally have a heaviness of the chest with no pattern of aggravating at noon admits to feeling more tired over the last month or so. In the ED she was a vitals. D-dimer was 1.18 troponin was 0.019 [place]BNP was 26895 CTA of the chest was done which negative for PE but did cardiomegaly with probable mild interstitial edema and bilateral pleural effusion. She received a dose of Lasix in the ER further treatment. Continue diuresis with with furosemide 20 mg IV b.i.d. with close monitoring of volume status, renal function, and electrolytes. Echocardiogram ordered and currently pending. 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 Echo pending Review of Systems Review of Systems: All systems reviewed & are unremarkable except as noted in HPI and below Exam Narrative: General: Well-developed, elderly female sitting up in bed in no acute distress. HEENT: Wearing corrective lenses. PERRL, EOMI. Sclera anicteric. Oral mucosa moist. Neck: Supple. No significant JVD. Respiratory: Respirations are nonlabored. Lung sounds are a bit diminished at the bases Cardiovascular: Regular rate and rhythm with S1-S2. Gastrointestinal: Abdomen is soft, nontender, and nondistended with positive bowel sounds. Skin: Warm and dry. No rash or lesions on limited exam. Extremities: No cyanosis or clubbing. 1+ josh ankle edema bilaterally. Radial and pedal pulses intact. Neurological: Alert. Cranial nerves 2-12 are grossly intact. No gross focal deficits to casual conversation. Psychiatric: Pleasant and cooperative with normal mood and affect. Judgment and insight intact. Objective Data Vital Signs Vital Signs: Vital Signs - 24 hr 04/06/23 16:00 04/06/23 16:00 04/06/23 20:00 Temperature 98.0 F Pulse Rate 80 83 Respiratory Rate 20 Blood Pressure 112/67 Pulse Oximetry 95 Oxygen Delivery Room Air 04/06/23 19:50 04/07/23 00:55 04/06/23 20:00 Temperature 98.4 F 97.8 F Pulse Rate 86 90 83 Respiratory Rate 18 18 Blood Pressure 113/71 120/67 Pulse Oximetry 98 95 Oxygen Delivery 04/07/23 00:00 04/07/23 04:00 04/07/23 05:00 Temperature 98.7 F Pulse Rate 84 81 87 Respiratory Rate 16 Blood Pressure 128/71 Pulse Oximetry 95 Oxygen Delivery 04/07/23 08:00 04/07/23 08:00 04/07/23 08:00 Temperature 97.8 F Pulse Rate 90 90 Respira
[2023-04-07] MEDS: METOPROLOL SUCCINATE EXT REL 12.5 MG TABCR PO (13:32)
[2023-04-07] MEDS: PERFLUTREN LIPID MICROSPHERES 1.5 ML VIAL DILUTED TO 10 ML TOTAL VOLUME IV PUSH (16:44)
[2023-04-08] VITALS (13 sets, daily range): BP systolic 105–121; BP diastolic 61–76; PULSE 73–92; RESP 15–20; TEMP 36–37.1; O2SAT 95–98
[2023-04-08 06:23] LABS: Basophils Absolute Auto 0.1 K/mm3 (0.0-0.1); Basophils Percent Auto 0.7 % (0.2-1.2); Eosinophils Absolute Auto 0.2 K/mm3 (0-0.3); Eosinophils Percent Auto 2.3 % (0-4.4); Hematocrit 41.8 % (37.0-47.0); Hemoglobin 12.9 g/dL (12.0-15.0); Immature Granulocyte Absolute 0.02 K/mm3 (0.00-0.031); Immature Granulocyte Percent A 0.3 % (0-0.5); Lymphocytes Absolute Auto 1.57 K/mm3 (0.9-3.2); Lymphocytes Percent Auto 22.6 % (18.3-44.2); Mean Corpuscular HGB Conc 30.9 g/dl (32-36); Mean Corpuscular Hemoglobin 29.1 pg (26-34); Mean Corpuscular Volume 94.4 fl (80-100); Mean Platelet Volume 12.1 fl (7.4-10.4); Monocytes Absolute Auto 0.8 K/mm3 (0.1-0.6); Monocytes Percent Auto 11.7 % (2.6-8.5); Neutrophils Absolute Auto 4.3 K/mm3 (1.3-6.7); Neutrophils Percent Auto 62.4 % (45.5-73.1); Platelet Count Result 186 k/mm3 (150-375); Red Blood Count 4.43 M/mm3 (4.2-5.4); White Blood Count 6.9 K/mm3 (4.5-10.0)
[2023-04-08 06:35] LABS: Alanine Aminotransferase 19 U/L (6-35); Albumin Level 3.5 g/dL (3.5-5.1); Alkaline Phosphatase 64 U/L (38-126); Anion Gap 6 mmol/L (8-16); Aspartate Amino Transferase 24 U/L (14-36); Bilirubin,Total 0.7 mg/dL (0.2-1.3); Blood Urea Nitrogen 29 mg/dL (7-17); Calcium 8.6 mg/dL (8.4-10.2); Carbon Dioxide 26 mmol/L (22-30); Chloride 103 mmol/L (98-107); Estimated Glomerular Filt Rate 47; Glucose 92 mg/dL (65-110); Magnesium 2.3 mg/dL (1.6-2.3); Potassium 4.1 mmol/L (3.4-5.0); Sodium 135 mmol/L (137-145)
[2023-04-08] MEDS: METOPROLOL SUCCINATE EXT REL 12.5 MG TABCR PO (09:30)
[2023-04-08] MEDS: THERAPEUTIC MULTIVITAMINS/MINERALS TAB (*BKC) 1 TABLET PO (09:30)
[2023-04-08] MEDS: CHOLECALCIFEROL 1,000 UNITS TABLET 1000 UNITS PO (09:30)
[2023-04-08] MEDS: ENOXAPARIN 40 MG/0.4 ML SYRINGE SUB-Q (09:31)
--- NOTE | 2023-04-08 10:31 | IVDEFINITY ---
Prior to administration of IV Definity the patient was educated on the risks and benefits of the imaging enhancing agent including potential adverse side effects. The patient verbalized understanding. Allergies were verified. No exclusion criteria were identified and at least one of the following inclusion criteria were met: 1) physician request, 2) patient technically difficult to image (per the [place] [employer] guidelines of two or more segments not discernable within the apical view), or 3) questionable left ventricular function. ?
--- NOTE | 2023-04-08 11:59 | PM.CNCAR ---
Assessment and Plan Assessment and plan (1) Acute systolic CHF (congestive heart failure): Code(s): I50.21 - Acute systolic (congestive) heart failure Status: Acute Assessment and Plan: Pt admitted w/ acute new systolic CHF. Improving w/ IV diuretics. (2) Cardiomyopathy, dilated: Code(s): I42.0 - Dilated cardiomyopathy Status: Acute Assessment and Plan: Dilated cardiomyopathy, EF 17%, with RV and LV hypokinesis and enlargement. Etiology appears to be idiopathic but may be due to her LBBB also. Counselled pt extensively re: CHF, CM, medical treatment, low Na+ diet, warning signs etc. Use of medical tx may be limited by soft BP. --Agree w/ metoprolol succ 12.5 mg qd --DC Lasix to keep intravascular volume and BP up so we may use other meds for CHF; might discharge on low dose diuretic or spironolactone. --Add Jardiance, if affordable. --Try adding low dose Entresto 24/26 mg 1/2 tablet BID, if affordable. (3) Chest pressure: Code(s): R07.89 - Other chest pain Status: Acute Assessment and Plan: C/O chest pessure, r/o CAD. Discussed cardiac cath, Lexiscan vs coronary CTA. My index of suspicion is low (Echo suggests dilated cardiomyopathy). --Lexiscan in a.m. --Hopefully can discharge after this on Friday, and FU in office. (4) LBBB (left bundle branch block): Code(s): I44.7 - Left bundle-branch block, unspecified Status: Acute Assessment and Plan: LBBB noted. Will reassess EF after 3 months of medical tx, and consider a BiV pacer or ICD if no significant improvement. (5) At risk for sudden cardiac : Code(s): Z91.89 - Other specified personal risk factors, not elsewhere classified Status: Acute Assessment and Plan: Pt is at risk of SCD based on her EF. Tele has not shown any significant arrhythmias. Discussed being discharged w/ a Life Vest for extra safety; pt will think about it but is not eager. --Life Vest info History of Present Illness History of Present Illness Consult date/time: 04/08/23 11:59 Reason For Visit: CHF Exacerbation Narrative: Gosia Matta is an 88 y.o. female whom we were asked to see at the request of DR. Sampson Vivas for our advice and opinion regarding her new CHF and cardiomyopathy in consultation. PMX: Hypercholesterolemia, aortic atherosclerosis, no HTN, DM or known heart disease. Ms. Matta ( Just call me Dotty ) came to the ER 04/07/2023 c/o edema for 2 weeks and recent CHAPMAN. She was found to have new onset CHF, and has been started on IV Lasix. Echo showed EF 17%. she is feeling better and would like to go home. No PND, orthopnea, dizziness, palps. She has had some SSCP pressure if she overdoes it for the past 2 years. She tends to run a low BP. No recent URIs. Review of Systems Constitutional: Constitutional: Denies fever(s) Eyes: Eyes: Reports no additional eye complaints ENT: Denies epistaxis Cardiovascular: Cardiovascular: Reports chest pain, Reports pedal edema, Reports leg edema, Denies lightheadedness, Denies palpitations and Reports dyspnea Comments: No PND, orthopnea. Respiratory: Respiratory: Denies chest congestion, Reports cough (occasional), Denies dyspnea (none at rest) and Reports dyspnea on exertion Gastrointestinal: Gastrointestinal: Denies abdominal pain and Denies hematochezia Genitourinary: Genitourinary: Denies hematuria Musculoskeletal: Musculoskeletal: Reports arthralgias Integumentary/Breasts: Skin/Breast: Reports system reviewed and no additional complaints, except as docu Neurologic: Reports system reviewed and no additional complaints, except as documented and Denies behavioral changes Psychiatric: Psychiatric: Denies behavioral changes [facility] Past Medical History Medical History (Updated 04/08/23 @ 13:52 by Jeni Harding MD) Acute systolic CHF (congestive heart failure) Age-related osteoporosis withou
--- NOTE | 2023-04-08 13:49 | PM.IMPN ---
Progress Note: A&P Assessment and Plan (1) Suspected congestive heart failure: Code(s): R09.89 - Other specified symptoms and signs involving the circulatory and respiratory systems Status: Acute (2) Pleural effusion: Code(s): J90 - Pleural effusion, not elsewhere classified Status: Acute (3) Cardiomegaly: Code(s): I51.7 - Cardiomegaly Status: Acute (4) Elevated blood pressure reading: Code(s): R03.0 - Elevated blood-pressure reading, without diagnosis of hypertension Status: Acute Plan The patient presented to the emergency department for evaluation of increasing swelling and shortness a breath as detailed in HPI. Right around the beginning of the year she started to notice that her ankles were swell throughout the day and become very swollen by the nighttime. She has also noticed that she is getting short of breath with exertion sometimes she is short of breath when talking for extended periods of time. She saw For the symptoms the end of February and see was started her on furosemide 20 mg day for few days to see if that will help although she did not garbage pick up worker the prescription as she did not know Jocelyne are not. An echocardiogram was also ordered but she has yet to have that done. See yet progressively got worse and hence came to the ER for evaluation. Occasionally have a heaviness of the chest with no pattern of aggravating at noon admits to feeling more tired over the last month or so. In the ED she was a vitals. D-dimer was 1.18 troponin was 0.019 [place]BNP was 15480 CTA of the chest was done which negative for PE but did cardiomegaly with probable mild interstitial edema and bilateral pleural effusion. She received a dose of Lasix in the ER further treatment. Continue diuresis with with furosemide 20 mg IV b.i.d. with close monitoring of volume status, renal function, and electrolytes. Echocardiogram showed global dilated cardiomyopathy with severely reduced left and right ventricular systolic function and marked by atrial dilatation. Mild to moderate TR from annular dilation. Trivial MR. EF noted to be 15%. Started on beta-kristi metoprolol to. Plan to add ANTHONY inhibitor however may need ANRI so will hold off until cardia evaluation. Cardiology has been consulted this a.m.. 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 Reviewed echocardiographic finding with the patient. Was adamant earlier at going home. Discussed with son over the phone as well. Review of Systems Review of Systems: All systems reviewed & are unremarkable except as noted in HPI and below Exam Narrative: General: Well-developed, elderly female sitting up in bed in no acute distress. HEENT: Wearing corrective lenses. PERRL, EOMI. Sclera anicteric. Oral mucosa moist. Neck: Supple. No significant JVD. Respiratory: Respirations are nonlabored. Lung sounds are a bit diminished at the bases Cardiovascular: Regular rate and rhythm with S1-S2. Gastrointestinal: Abdomen is soft, nontender, and nondistended with positive bowel sounds. Skin: Warm and dry. No rash or lesions on limited exam. Extremities: No cyanosis or clubbing. 1+ josh ankle edema bilaterally. Radial and pedal pulses intact. Neurological: Alert. Cranial nerves 2-12 are grossly intact. No gross focal deficits to casual conversation. Psychiatric: Pleasant and cooperative with normal mood and affect. Judgment and insight intact. Objective Data Vital Signs Vital Signs: Vital Signs - 24 hr 04/07/23 16:00 04/07/23 20:35 04/08/23 02:00 Temperature 99.2 F 96.8 F L Pulse Rate 83 90 92 Respiratory Rate 20 18 Blood Pressure 126/84 106/66 Pulse Oximetry 95 97 Oxygen Delivery 04/07/23 20:00 04/08/23 00:00 04/08/23 04:00 Temper
--- NOTE | 2023-04-08 20:01 | PC.NURSE ---
I have reviewed Charlette's charting and agree with her findings.
[2023-04-09] VITALS (10 sets, daily range): BP systolic 93–118; BP diastolic 54–75; PULSE 57–93; RESP 16–18; TEMP 36–36.7; O2SAT 93–98
[2023-04-09 07:08] LABS: Basophils Absolute Auto 0.1 K/mm3 (0.0-0.1); Basophils Percent Auto 0.8 % (0.2-1.2); Eosinophils Absolute Auto 0.1 K/mm3 (0-0.3); Eosinophils Percent Auto 2.2 % (0-4.4); Hematocrit 42.9 % (37.0-47.0); Hemoglobin 13.2 g/dL (12.0-15.0); Immature Granulocyte Absolute 0.02 K/mm3 (0.00-0.031); Immature Granulocyte Percent A 0.3 % (0-0.5); Lymphocytes Absolute Auto 1.37 K/mm3 (0.9-3.2); Lymphocytes Percent Auto 23.2 % (18.3-44.2); Mean Corpuscular HGB Conc 30.8 g/dl (32-36); Mean Corpuscular Hemoglobin 29.3 pg (26-34); Mean Corpuscular Volume 95.1 fl (80-100); Mean Platelet Volume 12.3 fl (7.4-10.4); Monocytes Absolute Auto 0.7 K/mm3 (0.1-0.6); Monocytes Percent Auto 11.7 % (2.6-8.5); Neutrophils Absolute Auto 3.7 K/mm3 (1.3-6.7); Neutrophils Percent Auto 61.8 % (45.5-73.1); Platelet Count Result 182 k/mm3 (150-375); Red Blood Count 4.51 M/mm3 (4.2-5.4); Red Cell Distribution Width 13.1 % (11.5-14.5); White Blood Count 5.9 K/mm3 (4.5-10.0)
[2023-04-09 07:13] LABS: Alanine Aminotransferase 20 U/L (6-35); Albumin Level 3.5 g/dL (3.5-5.1); Alkaline Phosphatase 65 U/L (38-126); Anion Gap 5 mmol/L (8-16); Aspartate Amino Transferase 29 U/L (14-36); Bilirubin,Total 0.7 mg/dL (0.2-1.3); Blood Urea Nitrogen 29 mg/dL (7-17); Calcium 8.5 mg/dL (8.4-10.2); Carbon Dioxide 25 mmol/L (22-30); Chloride 103 mmol/L (98-107); Estimated Glomerular Filt Rate 47; Glucose 98 mg/dL (65-110); Magnesium 2.5 mg/dL (1.6-2.3); Potassium 3.9 mmol/L (3.4-5.0); Sodium 133 mmol/L (137-145)
[2023-04-09] MEDS: METOPROLOL SUCCINATE EXT REL 12.5 MG TABCR PO (13:16)
[2023-04-09] MEDS: THERAPEUTIC MULTIVITAMINS/MINERALS TAB (*BKC) 1 TABLET PO (13:17)
[2023-04-09] MEDS: EMPAGLIFLOZIN 10 MG TABLET PO (13:17)
[2023-04-09] MEDS: CHOLECALCIFEROL 1,000 UNITS TABLET 1000 UNITS PO (13:17)
[2023-04-09] MEDS: ENOXAPARIN 40 MG/0.4 ML SYRINGE SUB-Q (13:17)
--- NOTE | 2023-04-09 14:04 | EST_ITS ---
Patient Info Name: Gosia Matta Age: 88 years : 1935 Gender: Female Ht: 59 in Wt: 133 lbs BSA: 1.60 m2 HR: 70 bpm BP: 94 / 78 mmHg Exam Date: 04/09/2023 11:56 AM Exam Location: Echo Lab Patient Status: Inpatient Admit Date: 04/08/2023 Staff Ordering Physician: Jeni Harding MD Attending Provider: Jose Vivas MD Exercise Technologist: Judy Malave RDCS Exercise Physician: Jeni Harding MD Exam Type: CA stress glory w NM Study Info A regadenoson stress test was performed. Summary 1. Please correlate with nuclear medicine images, reported separately. 2. No abnormal ST-T wave changes with lexiscan. Protocol: Lexiscan Stress ECG Details Stage: REST Duration (min): 2 min : 42 sec HR (bpm): 70 SBP (mmHg): 94 DBP (mmHg): 78 Stage: REST Duration (min): 18 min : 9 sec HR (bpm): 74 SBP (mmHg): 94 DBP (mmHg): 78 Stage: STAGE 1 Duration (min): 0 min : 59 sec HR (bpm): 76 SBP (mmHg): 107 DBP (mmHg): 63 Stage: RECOVERY Duration (min): 1 min : 0 sec HR (bpm): 86 SBP (mmHg): 107 DBP (mmHg): 63 Stage: RECOVERY Duration (min): 2 min : 0 sec HR (bpm): 80 SBP (mmHg): 107 DBP (mmHg): 63 Stage: RECOVERY Duration (min): 3 min : 0 sec HR (bpm): 82 SBP (mmHg): 98 DBP (mmHg): 66 Stage: RECOVERY Duration (min): 4 min : 0 sec HR (bpm): 79 SBP (mmHg): 98 DBP (mmHg): 66 Stage: RECOVERY Duration (min): 5 min : 0 sec HR (bpm): 85 SBP (mmHg): 102 DBP (mmHg): 62 Stage: RECOVERY Duration (min): 5 min : 3 sec HR (bpm): 88 SBP (mmHg): 102 DBP (mmHg): 62 Rest HR: 74 bpm Peak HR: 91 bpm Rest Sys BP: 94 mmHg Peak Sys BP: 107 mmHg Max Pred HR: 131 bpm % Max Pred HR: 69 % Target HR: 111 bpm Max RPP: 9,737 bpm*mmHg BP Response: Normal blood pressure response Termination Reason: Completed protocol Cardiac Symptoms: Dyspnea Total Time: 1 min : 0 sec Rest [place] BP: 78 mmHg Peak [place] BP: 63 mmHg Total Dose: 0.4 mg Resting ECG Normal sinus rhythm. Left bundle branch block. Stress ECG No abnormal ST/T wave changes with exercise. Arrhythmias Occasional PVCs. Report Signatures
--- NOTE | 2023-04-09 15:44 | PM.PNCARD ---
Progress Note: A&P Assessment and Plan (1) Acute systolic CHF (congestive heart failure): Code(s): I50.21 - Acute systolic (congestive) heart failure Status: Acute Assessment and Plan: Pt admitted w/ acute new systolic CHF. Improving w/ IV diuretics. --additional Lasix 20 mg IV push x1 --a.m. BMP (2) Cardiomyopathy, dilated: Code(s): I42.0 - Dilated cardiomyopathy Status: Acute Assessment and Plan: Dilated cardiomyopathy, EF 17% by echo, 32% by [place], with RV and LV hypokinesis and enlargement. Etiology may be due to CAD based on her Lexiscan results, and possibly contributed by her LBBB also. --continue w/ metoprolol succ 12.5 mg qd. --Added Jardiance, if affordable. --so far tolerating low dose Entresto 24/26 mg 1/2 tablet BID, if affordable. --Add spironolactone (3) Abnormal stress test: Code(s): R94.39 - Abnormal result of other cardiovascular function study Status: Acute Assessment and Plan: Patient has complained of exertional chest pressure and her stress test suggests multivessel disease with fixed and reversible defects. Discussed likelihood of CAD with patient and recommended further evaluation with cardiac catheterization. Discussed possible treatment of CAD with medication, stents, and the possibility of CABG being the best solution. Patient is upset about all this information and would like to think about it. --treat with aspirin and statin for now. (4) LBBB (left bundle branch block): Code(s): I44.7 - Left bundle-branch block, unspecified Status: Acute Assessment and Plan: LBBB noted. Will reassess EF after 3 months of medical tx, and consider a BiV pacer or ICD if no significant improvement. (5) At risk for sudden cardiac : Code(s): Z91.89 - Other specified personal risk factors, not elsewhere classified Status: Acute Assessment and Plan: Pt is at risk of SCD based on her EF. Tele has not shown any significant arrhythmias. Discussed being discharged w/ a Life Vest for extra safety; pt is undecided. --Life Vest info Subjective Date/time seen: 04/09/23 15:44 Interval history: Follow-up for patient admitted with new onset heart failure and cardiomyopathy with EF 17%. Started on guideline directed medical therapy, limited somewhat by soft blood pressure. 04/09/2023: Slept well, no shortness of breath when up in room, upset about her new diagnosis of heart disease. Lexiscan: Extensive defects, primarily fixed but some reversibility present, ejection fraction 32% as below. Review of Systems Review of Systems: No dizziness or shortness of breath when up in the room. Anxious and upset. No stomach problems, renal problems, chest pain. Exam Const: General: cooperative, healthy appearing and comfortable; No confusion Orientation/consciousness: oriented to person, patient oriented x3 and No confusion HENMT: Mouth: Yes moist mucous membranes Eyes: General: appearance normal, both eyes and all related structures Neck: Neck: supple Resp: Effort & Inspection: normal respiratory effort Auscultation: rales bilateral Other: 1/3 up bilaterally Cardio: Rate: regular rate Rhythm: regular rhythm Heart sounds: no gallops and no murmurs GI: Inspection: normal to inspection GI Palp: No abdominal tenderness Skin: General skin exam: normal color and no rashes or lesions noted Neuro: General: oriented to person, patient oriented x3 and No confusion Extrem: Right lower extremity: no edema Left lower extremity: no edema Psych: Appearance: grossly normal Mental Status: mental status grossly normal Affect: Anxious affect present Objective Data Vital Signs Vital Signs: Vital Signs - 24 hr 04/08/23 17:00 04/08/23 16:00 04/08/23 20:00 Temperature 97.5 F L Pulse Rate 73 81 Respiratory Rate 17 Blood Pressure 111/61 Pulse Oximetry 97 Oxygen Delivery Room Air
[2023-04-09] MEDS: FUROSEMIDE INJ 40 MG/4 ML VIAL 20 MG IV PUSH (18:21)
--- NOTE | 2023-04-09 18:53 | PM.IMPN ---
Progress Note: A&P Assessment and Plan (1) Suspected congestive heart failure: Code(s): R09.89 - Other specified symptoms and signs involving the circulatory and respiratory systems Status: Acute Assessment and Plan: The patient presented with increasing swelling and shortness a breath. D-dimer was 1.18, troponin was 0.019 [place] proBNP [place] 21788. CTA of the chest was negative for PE but showed cardiomegaly with probable mild interstitial edema and bilateral pleural effusion. She was started on Lasix. Echo showing global dilated cardiomyopathy with severely reduced left and right ventricular systolic function and marked by atrial dilatation. Mild to moderate TR from annular dilation. Trivial MR. EF noted to be 15%. Cardiology consulted and she was started on Toprol, Entresto, empagliflozin and spironolactone. Ischemia evaluation with Lexiscan stress test showing large region of moderate to severe decreased perfusion apical predominance consistent with infarct with superimposed mild ischemia involving the majority of the left anterior descending coronary artery vascular distribution and significant portions of both the circumflex and right coronary artery vascular distributions with LV enlargement with moderately decreased ejection fraction measuring 32%. Patient with Acute Systolic CHF. She was provided options about further ischemic evaluation and also provided information about LifeVest. Follow-up with patient about her wishes to contnue further testing. (2) Pleural effusion: Code(s): J90 - Pleural effusion, not elsewhere classified Status: Acute Assessment and Plan: Moderate right and small left pleural effusions related to CHF. Treatment as above (3) Elevated blood pressure reading: Code(s): R03.0 - Elevated blood-pressure reading, without diagnosis of hypertension Status: Acute Assessment and Plan: Patient's blood pressure was reviewed on 04/09 Blood pressure remains well controlled. Will continue current medications. Plan Code status - full DVT prophylaxis Lovenox Subjective Date/time seen: 04/09/23 18:53 Interval history: 88yo relatively healthy elderly female here for shortness of breath. Assuming care. Chart reviewed. Still feels SOB with talking. Walking to the BR with CHAPMAN. Slept well. No orthopnea. Exam Narrative: AF 98.1 102/54 73 16 95% ra Gen - NARD Chest - R>L bibasilar crackles. nml RR CV - RRR S1/S2 Abd - Soft, NT/ND, Positive BS Back - kyphosis. Ext - No pedal edema Neuro - Alert and oriented. Nonfocal exam. Psych - Nml mood and affect Skin - Warm and dry Objective Data Vital Signs Vital Signs: Vital Signs - 24 hr 04/08/23 20:00 04/08/23 20:45 04/09/23 00:35 Temperature 98.7 F 96.8 F L Pulse Rate 81 65 Respiratory Rate 16 18 Blood Pressure 108/65 118/73 Pulse Oximetry 95 93 Oxygen Delivery Room Air 04/08/23 20:00 04/09/23 00:00 04/09/23 04:00 Temperature Pulse Rate 85 81 79 Respiratory Rate Blood Pressure Pulse Oximetry Oxygen Delivery 04/09/23 05:15 04/09/23 08:00 04/09/23 13:00 Temperature 98.1 F 97.4 F L 97.1 F L Pulse Rate 76 91 73 Respiratory Rate 16 16 16 Blood Pressure 117/75 103/62 113/67 Pulse Oximetry 94 98 97 Oxygen Delivery 04/09/23 13:16 04/09/23 08:00 04/09/23 12:00 Temperature Pulse Rate 79 80 72 Respiratory Rate Blood Pressure Pulse Oximetry Oxygen Delivery 04/09/23 16:00 04/09/23 16:00 Temperature 98.1 F Pulse Rate 57 L 73 Respiratory Rate 16 Blood Pressure 102/54 L Pulse Oximetry 95 Oxygen Delivery Intake/Output Intake/Output: Intake & Output 04/06/23 04/07/23 04/08/23 04/09/23 23:59 23:59 23:59 23:59 Intake Total 2108 1548 1085 790 Output Total 900 900 350 500 Balance 1208 094 738 290 Meds/Results Medications: Active Medications Generic Name Dose Route Start Last Admin
[2023-04-09] MEDS: SACUBITRIL/VALSARTAN 12-13 MG TABLET 1 TAB PO (20:29)
[2023-04-10] VITALS (7 sets, daily range): BP systolic 94–113; BP diastolic 51–59; PULSE 58–81; RESP 17–18; TEMP 36.3–36.4; O2SAT 95–98
[2023-04-10 07:17] LABS: Anion Gap 4 mmol/L (8-16); Blood Urea Nitrogen 32 mg/dL (7-17); Calcium 8.6 mg/dL (8.4-10.2); Carbon Dioxide 28 mmol/L (22-30); Chloride 103 mmol/L (98-107); Estimated Glomerular Filt Rate 42; Glucose 97 mg/dL (65-110); Potassium 3.7 mmol/L (3.4-5.0); Sodium 135 mmol/L (137-145)
[2023-04-10] MEDS: THERAPEUTIC MULTIVITAMINS/MINERALS TAB (*BKC) 1 TABLET PO (08:11)
[2023-04-10] MEDS: SACUBITRIL/VALSARTAN 12-13 MG TABLET 1 TAB PO (08:11)
[2023-04-10] MEDS: CHOLECALCIFEROL 1,000 UNITS TABLET 1000 UNITS PO (08:11)
[2023-04-10] MEDS: ASPIRIN 81 MG CHEWABLE TABLET PO (08:11)
[2023-04-10] MEDS: ATORVASTATIN 40 MG TABLET PO (08:11)
[2023-04-10] MEDS: METOPROLOL SUCCINATE EXT REL 12.5 MG TABCR PO (08:11)
[2023-04-10] MEDS: ENOXAPARIN 40 MG/0.4 ML SYRINGE SUB-Q (08:12)
[2023-04-10] MEDS: SPIRONOLACTONE 25 MG TABLET PO (08:12)
[2023-04-10] MEDS: EMPAGLIFLOZIN 10 MG TABLET PO (08:12)
--- NOTE | 2023-04-10 10:56 | PM.PNCARD ---
Progress Note: A&P Assessment and Plan (1) Acute systolic CHF (congestive heart failure): Code(s): I50.21 - Acute systolic (congestive) heart failure Status: Acute Assessment and Plan: Pt admitted w/ acute new systolic CHF. Improved w/ IV diuretics. --will start p.o. furosemide 40mg daily today (2) Cardiomyopathy, dilated: Code(s): I42.0 - Dilated cardiomyopathy Status: Acute Assessment and Plan: Dilated cardiomyopathy, EF 17% by echo, 32% by [place], with RV and LV hypokinesis and enlargement. Etiology may be due to CAD based on her Lexiscan results, and possibly contributed by her LBBB also. --continue w/ metoprolol succ 12.5 mg qd. --Added Jardiance, if affordable. --so far tolerating low dose Entresto 24/26 mg 1/2 tablet BID, if affordable. --Add spironolactone --Declined LifeVest --further titration of GDMT to be done as outpatient (3) Abnormal stress test: Code(s): R94.39 - Abnormal result of other cardiovascular function study Status: Acute Assessment and Plan: Patient has complained of exertional chest pressure and her stress test suggests multivessel disease with fixed and reversible defects. She does not wish to undergo cardiac cath at this time. --treat with aspirin and statin for now. (4) LBBB (left bundle branch block): Code(s): I44.7 - Left bundle-branch block, unspecified Status: Acute Assessment and Plan: LBBB noted. Will reassess EF after 3 months of medical tx, and consider a BiV pacer or ICD if no significant improvement. (5) At risk for sudden cardiac : Code(s): Z91.89 - Other specified personal risk factors, not elsewhere classified Status: Acute Assessment and Plan: Pt is at risk of SCD based on her EF. Tele has not shown any significant arrhythmias. Discussed being discharged w/ a Life Vest for extra safety; pt declined Subjective Date/time seen: 04/10/23 10:56 Interval history: Follow-up for patient admitted with new onset heart failure and cardiomyopathy with EF 17%. Started on guideline directed medical therapy, limited somewhat by soft blood pressure. 04/09/2023: Slept well, no shortness of breath when up in room, upset about her new diagnosis of heart disease. Lexiscan: Extensive defects, primarily fixed but some reversibility present, ejection fraction 32% as below. Date of service 04/10/2023: She feels well today, but notes that she is very irritable - wants to go home. She denies any chest pain, palpitations. Does have dyspnea with activity but none at rest. Review of Systems Constitutional: Constitutional: Denies fever(s) Eyes: Eyes: Reports no additional eye complaints ENT: Denies epistaxis Cardiovascular: Cardiovascular: Reports chest pain, Reports pedal edema, Reports leg edema, Denies lightheadedness, Denies palpitations, Denies dyspnea (none at rest) and Reports dyspnea on exertion Respiratory: Respiratory: Denies chest congestion, Reports cough (occasional), Denies dyspnea (none at rest) and Reports dyspnea on exertion Gastrointestinal: Gastrointestinal: Denies abdominal pain and Denies hematochezia Genitourinary: Genitourinary: Denies hematuria Musculoskeletal: Musculoskeletal: Reports arthralgias Integumentary/Breasts: Skin/Breast: Reports system reviewed and no additional complaints, except as docu Neurologic: Reports system reviewed and no additional complaints, except as documented, Denies behavioral changes and Denies confusion Psychiatric: Psychiatric: Denies behavioral changes and Denies confusion Endocrine: Endocrine: Denies palpitations Exam Const: General: cooperative, healthy appearing and comfortable; No confusion Orientation/consciousness: oriented to person, patient oriented x3 and No confusion Other: Very cognitively intact older female, NAD. HENMT: Mouth: Yes moist mucous membranes Eyes: General: appearance normal, both eyes and
[2023-04-10] MEDS: FUROSEMIDE 40 MG TABLET PO (13:53)
--- NOTE | 2023-04-10 14:58 | PM.DS ---
DS: Admitting Diagnosis Discharge Date 04/10/23 Admitting Diagnosis Shortness of breath DS: Discharge Diagnosis Discharge Diagnosis (1) Acute systolic CHF (congestive heart failure): Code(s): I50.21 - Acute systolic (congestive) heart failure Status: Acute (2) Pleural effusion: Code(s): J90 - Pleural effusion, not elsewhere classified Status: Acute (3) Elevated blood pressure reading: Code(s): R03.0 - Elevated blood-pressure reading, without diagnosis of hypertension Status: Acute DS: Summary Hospital Course Reason for hospitalization: 88yo relatively healthy elderly female here for shortness of breath. Please see H&P for details. Hospital Course: The patient presented with increasing lower extremity swelling and shortness a breath.? D-dimer was 1.18, troponin was 0.019 [place]BNP [place] 98708. CTA of the chest was negative for PE but showed cardiomegaly with probable mild interstitial edema and bilateral pleural effusion.?She was started on Lasix.?Echo showing global dilated cardiomyopathy with severely reduced left and right ventricular systolic function and marked by atrial dilatation.? Mild to moderate TR from annular dilation.? Trivial MR.? EF noted to be 15%.?Cardiology consulted and she was started on Toprol, Entresto, empagliflozin and spironolactone. Ischemia evaluation with Lexiscan stress test showing large region of moderate to severe decreased perfusion apical predominance consistent with infarct with superimposed mild ischemia involving the majority of the left anterior descending coronary artery vascular distribution and significant portions of both the circumflex and right coronary artery vascular distributions with LV enlargement with moderately decreased ejection fraction measuring 32%. Patient with new Acute Systolic CHF.?She was provided options about further ischemic evaluation and also provided information about LifeVest. She declined further evaluation and also declind the LifeVest. She voiced understanding about the risk of not performing further evaluation and for not using the LifeVest which include (but not limited to) sudden cardiac , AMI or worsening heart failure. Also called and spoke with son and the above was explained in detail. Patient overall did well and was able to be discharged on 04/10/23. Recommended patient have LifeAlert. Status at Discharge Cognitive/behavioral status at discharge: stable Time Spent with Patient Time attestation: Total time spent providing and/or coordinating discharge services: 36 minutes Time spent: Greater than 30 minutes Exam Narrative: AF 97.5 94/59 73 17 98% ra Gen - NARD Chest - few basilar crackles. nml RR CV - RRR S1/S2 Abd - Soft, NT/ND, Positive BS Back - kyphosis. Ext - No pedal edema Psych - Nml mood and affect Skin - Warm and dry DS: Data Data Completed and Pending Labs on day of discharge: Labs from last 24 hours 04/10/23 06:25 Sodium 135 L Potassium 3.7 Chloride 103 Carbon Dioxide 28 Anion Gap 4 L BUN 32 H Creatinine 1.20 H Estim Creat Clear Calc Not Reportable Estimated GFR 42 L Glucose 97 Calcium 8.6 Discharge Plan Discharge Attending physician on discharge: Yohannes Barr Consulting providers: Jeni Harding Discharging Clinician: Yohannes Barr Anticipated Discharge Date/Time: 04/10/23 15:07 Patient Disposition: Home, Self-Care Activity: as tolerated Diet: heart healthy and other - see discharge instructions Discharge Instructions: Take precautions to avoid falls. Rise slowly from a lying or sitting position. Pause before standing or walking. Check daily morning weights after voiding. Call your doctor if you gain more than 3 lb in 2 days or 5 lb in 1 week. Contact your doctor or call 911 and come to the Emergency Room if you have chest pain, increasing shortness of breath or other worrisome symptoms. Avoid NSAIDs (ibup
== END 2023-04-10 16:40 | disposition home or self-care (01) | DRG 292 ==
LOC: ANHED 11:44 → ANH3MEDSUR 14:52
PROVIDERS: Internal Medicine Cardiovascular Disease; Physician Assistant; Admitting Provider Internal Medicine; Emergency Provider Physician Assistant; PCP Family Medicine; Visit Provider Internal Medicine
DX: I50.21 Acute systolic (congestive) heart failure (principal); I42.0 Dilated cardiomyopathy; I51.7 Cardiomegaly; I44.7 Left bundle-branch block, unspecified; I70.0 Atherosclerosis of aorta; E78.00 Pure hypercholesterolemia, unspecified; M19.90 Unspecified osteoarthritis, unspecified site; M81.0 Age-related osteoporosis without current pathological fracture; M41.9 Scoliosis, unspecified; R03.0 Elevated blood-pressure reading, without diagnosis of hypertension; Z87.891 Personal history of nicotine dependence; Z88.0 Allergy status to penicillin
CPT/HCPCS: 36415; 71045; 71046; 71275; 78452; 80048; 80053; 83735; 83880; 84439; 84443; 84480; 84484; 85025; 85380; 85610; 85730; 93005; 93017; 93970; 96372; 96374; 96375; 96376; 99285; A9270; A9502; C8929; G0378; J1650; J1940; J2785; Q9957; Q9967

== ENCOUNTER 2023-06-04 17:07 | Inpatient (IN) | payer MEDICARE, SELFPAY ==
--- NOTE | ~2023-06-04 | CT_ITS ---
EXAMINATION: CT chst ab pel leilani lum wo DATE: 06/04/2023 19:57 INDICATION: Back pain. Fall. TECHNIQUE: Computed tomography (CT) of the chest, abdomen, pelvis, thoracic spine, and lumbar spine w as performed without intravenous contrast. Automated exposure control and iterative reconstruction te chnique were employed. The dose-length product was 469.43 mGy-cm. COMPARISON: CT abdomen and pelvis 04/16/19, chest CT 04/05/2023 FINDINGS: CT CHEST: There is mild scarring at the lung apices. There is mild atelectasis bilaterally. Calcified pulmonary nodules and calcified hilar lymph nodes are consistent with old granular disease. No pleur al effusion. Cardiomegaly is noted. No pericardial effusion. There are coronary artery calcifications . There is a small sliding hiatal hernia. There are old healed right rib fractures. CT ABDOMEN AND PELVIS: Calcifications in the liver and spleen are consistent with old granulomatous d isease. The gallbladder, pancreas, and right adrenal gland are normal. There is a 3.6 cm mass in left adrenal gland measuring soft tissue attenuation, stable from 04/16/2019, likely an adenoma. The kidney s are normal. There is calcified atherosclerosis of the aorta and many of the other arteries. There a re no dilated loops of bowel. The appendix is not visualized. There are no pathologically enlarged ly mph nodes. There is no free intraperitoneal fluid. CT THORACIC SPINE: There is 29 degrees dextroscoliosis of thoracolumbar spine. There is kyphosis of t horacic spine. There are chronic burst fractures of T8 and T9. There is a chronic compression fractur e of T11. There is multilevel mild disc height loss. There is mildly decreased disc height at T8-T9. There is multilevel facet joint osteoarthritis. There is mild neural foraminal stenosis at multiple l evels. On the left, there is moderate neural foraminal stenosis at T9-T10. No central canal stenosis. CT LUMBAR SPINE: There is a chronic burst fracture of L1 with greater than 4/5 loss of height and ret ropulsion of bone 4 mm into central spinal canal with mild central canal stenosis. There is mildly de creased disc height at L1-L2. The following disc levels are specifically discussed: L1-L2: The disc is bulging. There is mild bilateral facet joint osteoarthritis. There is mild bilater al neural foraminal stenosis. There is mild central canal stenosis. L2-L3: The disc is bulging. There is mild bilateral facet joint osteoarthritis. There is mild bilater al neural foraminal stenosis. There is mild central canal stenosis. L3-L4: The disc is bulging. There is mild bilateral facet joint osteoarthritis. There is mild bilater al neural foraminal stenosis. There is mild central canal stenosis. L4-L5: The disc is bulging. There is severe bilateral facet joint osteoarthritis. There is mild bilat eral neural foraminal stenosis. There is mild central canal stenosis. L5-S1: The disc is bulging. There is severe bilateral facet joint osteoarthritis. There is mild bilat eral neural foraminal stenosis. There is mild central canal stenosis. IMPRESSION: 1. No acute posttraumatic findings. Reviewed, dictated and finalized at location E.
--- NOTE | ~2023-06-04 | XR_ITS ---
EXAMINATION: XR hand LT min 3V DATE: 06/04/2023 17:59 INDICATION: Fall. TECHNIQUE: 3 views of left hand were obtained. COMPARISON: Left wrist radiographs 01/20/2016 FINDINGS: There is an old healed fracture of distal radius. There is 6 degrees palmar tilt of the dis britany articular surface. No acute fracture. There is mild osteoarthritis of triscaphe joint, first carp ometacarpal joint, and some of the metacarpophalangeal joints and interphalangeal joints. There is se moses osteoarthritis of first interphalangeal joint and second-fifth distal interphalangeal joints. IMPRESSION: 1. Polyarticular osteoarthritis. Reviewed, dictated and finalized at location E.
--- NOTE | ~2023-06-04 | CT_ITS ---
EXAMINATION: CT cervical spine wo con DATE: 06/04/2023 19:56 INDICATION: Neck injury. Fall. TECHNIQUE: Computed tomography (CT) of the cervical spine was performed without intravenous contrast. Automated exposure control and iterative reconstruction technique were employed. The dose-length pro duct was 681.00 mGy-cm. COMPARISON: None FINDINGS: There is mild scarring at the lung apices. There is 10 degrees levoscoliosis of cervical sp ine. Vertebral body heights are normal. There is severely decreased disc height from C2-3-C4 through C6-C7. The following disc levels are specifically discussed: C2-C3: There is mild bilateral uncovertebral joint osteoarthritis. There is severe bilateral facet aruna int osteoarthritis. There is mild bilateral neural foraminal stenosis. There is mild central canal st enosis. C3-C4: There is severe bilateral uncovertebral joint osteoarthritis. There is severe bilateral facet joint osteoarthritis. There is mild bilateral neural foraminal stenosis. There is mild central canal stenosis. C4-C5: There is severe bilateral uncovertebral joint osteoarthritis. There is severe bilateral facet joint osteoarthritis. There is mild bilateral neural foraminal stenosis. There is mild central canal stenosis. C5-C6: There is mild right and severe left uncovertebral joint osteoarthritis. There is severe bilate ral facet joint osteoarthritis. There is moderate left neural foraminal stenosis. There is mild centr al canal stenosis. C6-C7: There is severe bilateral uncovertebral joint osteoarthritis. There is severe bilateral facet joint osteoarthritis. There is mild bilateral neural foraminal stenosis. There is mild central canal stenosis. C7-T1: There is no uncovertebral joint osteoarthritis. There is mild right and moderate left facet aruna int osteoarthritis. There is mild left neural foraminal stenosis. There is no central canal stenosis. IMPRESSION: 1. No fracture. 2. Severe cervical spondylosis. 3. Cervical levoscoliosis. Reviewed, dictated and finalized at location E.
--- NOTE | ~2023-06-04 | XR_ITS ---
EXAMINATION: XR shoulder RT min 2V DATE: 06/04/2023 17:59 INDICATION: Right shoulder injury. Fall. TECHNIQUE: 3 views of right shoulder were obtained. COMPARISON: Chest 2 views 04/01/2023 FINDINGS: There is chronic widening of right acromioclavicular joint. No acute fracture. The glenohum eral joint is normal. There are old healed right rib fractures. IMPRESSION: 1. Chronic widening of right acromioclavicular joint, which may be from an old acromioclavicular sepa ration or distal clavicle resection. Reviewed, dictated and finalized at location E. IMPRESSION: 1. Chronic widening of right acromioclavicular joint, which may be from an old acromioclavicular separation or distal clavicle resection.
--- NOTE | ~2023-06-04 | CT_ITS ---
EXAMINATION: CT brain wo con DATE: 06/04/2023 19:56 INDICATION: Fall. Loss of consciousness. TECHNIQUE: Computed tomography (CT) of the head was performed without intravenous contrast. The mA wa s adjusted according to patient size. Iterative reconstruction technique was employed. The dose-lengt h product was 681.00 mGy-cm. COMPARISON: Head CT 01/20/2016 FINDINGS: There are scattered areas of low attenuation in the cerebral white matter. There is no intr acranial hemorrhage, acute infarction, or abnormal intracranial mass lesion. The ventricles are michael l in size. There is mild mucosal thickening in the ethmoid sinuses. There are likely changes of ocula r lens replacement surgeries. The mastoid air cells are normal. There is an old fracture deformity of right nasal bone. IMPRESSION: 1. Worsened moderate nonspecific cerebral white matter disease, which likely represents chronic small vessel ischemic disease. Reviewed, dictated and finalized at location E. IMPRESSION: 1. Worsened moderate nonspecific cerebral white matter disease, which likely re presents chronic small vessel ischemic disease.
[2023-06-04 17:22] VITALS: BP 117/74; PULSE 83; RESP 18; TEMP 36.3; O2SAT 98
--- NOTE | 2023-06-04 17:34 | ECG_ITS ---
SEE SCANNED COPY FOR CONFIRMED REPORT MTDD
[2023-06-04 17:45] VITALS: BP 106/54; PULSE 76; RESP 18; O2SAT 95
[2023-06-04 18:31] LABS: Basophils Percent Auto 0.2 % (0.2-1.2); Hematocrit 45.4 % (37.0-47.0); Hemoglobin 14.4 g/dL (12.0-15.0); Immature Granulocyte Absolute 0.04 K/mm3 (0.00-0.031); Immature Granulocyte Percent A 0.3 % (0-0.5); Lymphocytes Absolute Auto 0.97 K/mm3 (0.9-3.2); Mean Corpuscular HGB Conc 31.7 g/dl (32-36); Mean Corpuscular Hemoglobin 28.5 pg (26-34); Mean Corpuscular Volume 89.7 fl (80-100); Mean Platelet Volume 11.5 fl (7.4-10.4); Monocytes Percent Auto 8.4 % (2.6-8.5); Neutrophils Percent Auto 83.1 % (45.5-73.1); Platelet Count Result 182 k/mm3 (150-375); Red Blood Count 5.06 M/mm3 (4.2-5.4); Red Cell Distribution Width 13.3 % (11.5-14.5); White Blood Count 12.1 K/mm3 (4.5-10.0)
[2023-06-04 18:40] LABS: Lactic Acid Reflex 2.8 mmol/L (0.7-2.0)
[2023-06-04 18:43] LABS: Alanine Aminotransferase 22 U/L (6-35); Albumin Level 4.3 g/dL (3.5-5.1); Alkaline Phosphatase 74 U/L (38-126); Anion Gap 11 mmol/L (4-12); Aspartate Amino Transferase 55 U/L (14-36); Bilirubin,Total 1.2 mg/dL (0.2-1.3); Blood Urea Nitrogen 64 mg/dL (7-17); CRP 1.5 mg/dL (<1.0); Carbon Dioxide 20 mmol/L (22-30); Chloride 107 mmol/L (98-107); Estimated CRCL calculation 14 ml/min; Estimated Glomerular Filt Rate 22; Glucose 119 mg/dL (65-110); Lipase 57 U/L (23-300); Potassium 5.1 mmol/L (3.4-5.0); Sodium 138 mmol/L (137-145)
[2023-06-04 18:45] VITALS: BP 93/76; PULSE 81; RESP 22; O2SAT 96
[2023-06-04 18:50] LABS: Troponin I 0.115 ng/mL (0.000-0.034)
--- NOTE | 2023-06-04 19:00 | ED.FALL ---
HPI - Fall General Chief Complaint: Fall Stated Complaint: fall with back pain Time Seen by Provider: 06/04/23 17:30 History of Present Illness HPI Narrative: Patient is an 88 year old female with history of CHF, CAD, LBBB, HLD here from home after being found down by family unresponsive. Family reportedly talked her on the phone every day, her son who lives locally checks on her every Friday. He went over to the house today and the doors were locked, she did not come to the door. He went home and got his keys and on coming back to the house he found her lying on the floor and all she was able to say is that she fell this morning. They note typically she is fully independent and right now is unable to provide any history. They note that she has been adamant about being DNR/DNI and would not want any invasive procedures as she has previously refused a cardiac cath in the past that align with these wishes. Related Data Home Medications Medication Instructions Recorded Confirmed cholecalciferol (vitamin D3) 25 25 mcg PO DAILY 03/26/22 05/13/23 mcg (1,000 unit) capsule [id number]-[id number] ac 400 400 tablet PO DAILY 03/26/22 05/13/23 mcg-calcium carb 500 mg-vit K1 20 mcg tablet (Women's 50 Plus Multivitamin) Allergies Allergy/AdvReac Type Severity Reaction Status Date / Time Penicillins Allergy Intermediate Palpitations Verified 05/13/23 17:58 RASH lidocaine [From Xylocaine] Allergy Mild Headache Verified 05/13/23 17:58 Review of Systems Review of Systems: ROS unobtainable: Yes unobtainable due to mental status [facility] Past Medical History Medical History Abnormal stress test Acute systolic CHF (congestive heart failure) Age-related osteoporosis without current pathological fracture Atherosclerosis of aorta Atherosclerosis of other arteries Burst fracture of lumbar vertebra 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 Burst fracture of thoracic vertebra Chronic burst fracture at L1. Chest pressure Disorder of adrenal gland, unspecified Hypotension Ischemic cardiomyopathy LBBB (left bundle branch block) Other kyphosis, thoracic region Primary generalized (osteo)arthritis Pure hypercholesterolemia, unspecified Sciatica, left side Suspected congestive heart failure Surgical History Surgical History History of cataract extraction History of ovarian cystectomy History of right breast biopsy Benign pathology. History of surgery on left wrist (01/2016) Reduction stabilization of left distal radius fracture with external fixator device. Family History Family History Father Malignant neoplasm of prostate Mother Stomach cancer Sibling Autoimmune disease Sibling Amyotrophic lateral sclerosis Sibling Brain cancer Sibling Heart disease of massive [place] age 67 Social History Social History Social History: , 3 sons and one daughter. 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 Lives alone with her dog Claudio. Surrogate medical decision maker: Jair Matta, son. Code status: Full code. 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 Spiritual care concerns: No Exam Narrative:
--- NOTE | 2023-06-04 19:05 | PC.NURSE ---
Report given to SULMA Danielle
[2023-06-04 19:07] LABS: Creatine Kinase 2802 U/L (30-135)
[2023-06-04 19:15] VITALS: BP 101/63; PULSE 78; RESP 20; O2SAT 99
[2023-06-04] MEDS: LACTATED RINGERS 1,000 ML 999 ML IV CONT ×2 (19:32→20:22)
--- NOTE | 2023-06-04 19:44 | PC.NURSE ---
Pt down to ct via stretcher with radiology technician at this time.
[2023-06-04 21:29] LABS: Reflex Lactic Acid Yes or No Add Lactic
[2023-06-04] MEDS: ACETAMINOPHEN 500 MG TABLET 1000 MG PO (21:42)
[2023-06-04 21:50] LABS: Appearance Urine Clear (Clear); Bacteria Urine None Seen /hpf; Bilirubin Urine Negative (Negative); Blood Urine 2+ (Negative); Color Urine Yellow (Yellow); Glucose Urine UA 3+ mg/dL (Negative); Ketones Urine Negative (Negative); Leukocyte Esterase Ur Negative LEU/UL (Negative); Nitrate Urine Negative (Negative); Protein Urine 1+ mg/dL (Negative); RBC Urine 0-2 /hpf (0-2); Specific Grav Ur 1.018 (1.001-1.035); Squamous Epithelial Cell Urine None Seen /hpf (Few); Urobilinogen Urine 0.2 mg/dL (<2.0); WBC Urine 0-5 /hpf (0-3)
[2023-06-04 22:04] LABS: INR 1.1; Prothrombin Time 14.9 Seconds (11.1-14.7)
[2023-06-04 22:05] LABS: Lactic Acid 2.1 mmol/L (0.7-2.0)
[2023-06-04 22:05] LABS: Add Urine Microscopic? YES
[2023-06-04] MEDS: LIDO 1%/EPINEPHRINE 1:100,000 20 ML VIAL 10 ML INFILTRATE (22:12)
[2023-06-04 22:35] VITALS: BP 99/54; PULSE 66; RESP 14; O2SAT 99
[2023-06-04 23:20] LABS: Troponin I 0.108 ng/mL (0.000-0.034)
[2023-06-05 00:15] VITALS: BP 90/50; PULSE 79; RESP 16; O2SAT 96
[2023-06-05 00:37] VITALS: BP 93/40; PULSE 73; RESP 22; TEMP 36.3; O2SAT 95
--- NOTE | 2023-06-05 00:41 | ADMGEN ---
This patient, Gosia Matta, was admitted to [facility] Surg Room 302-01. Patient/family oriented to hospital policies and general routines including ID bracelet, bed and alarms, visiting hours, pain management, procedures, bathroom and other care routines, personal items, smoking policy, room service/diet, and visiting hours. Information on how to activate the Rapid Response Team has been discussed. Patient/Family are encouraged to report perceived risks to care and to ask questions if they do not understand what they are told or what they should do.
[2023-06-05] MEDS: MORPHINE SULFATE (*CRX) 4 MG/ML INJ IV PUSH ×3 (01:10→14:51)
--- NOTE | 2023-06-05 05:22 | PM.IMHP ---
H&P: HPI History of Present Illness Date/Time: 06/05/23 05:22 Chief Complaint: fall Narrative: This is an 88-year-old female past medical history significant for congestive heart failure, diabetes mellitus, ischemic cardiomyopathy, left bundle-branch block dyslipidemia. patient presented to the emergency room after she was found down by family members unknown length of time she had been down. Most of the history has been obtained from family members and emergency room physician patient is unable to give any history due to altered mental status, obtundation, lethargy. Patient was noted to have low blood pressure end of life decision making were discussed family opted for comfort care measures only with hospice. patient is been admitted for further evaluation management and treatment. EXAMINATION: CT brain wo con DATE: 06/04/2023 19:56 INDICATION: Fall. Loss of consciousness. TECHNIQUE: Computed tomography (CT) of the head was performed without intravenous contrast. The mA was adjusted according to patient size. Iterative reconstruction technique was employed. The dose-length product was 681.00 mGy-cm. COMPARISON: Head CT 01/20/2016 FINDINGS: There are scattered areas of low attenuation in the cerebral white matter. There is no intracranial hemorrhage, acute infarction, or abnormal intracranial mass lesion. The ventricles are normal in size. There is mild mucosal thickening in the ethmoid sinuses. There are likely changes of ocular lens replacement surgeries. The mastoid air cells are normal. There is an old fracture deformity of right nasal bone. IMPRESSION: 1. Worsened moderate nonspecific cerebral white matter disease, which likely represents chronic small vessel ischemic disease. Review of Systems Review of Systems: ROS unobtainable: Yes unobtainable due to mental status ( lethargy/obtundation) [facility] Past Medical History Medical History Abnormal stress test Acute systolic CHF (congestive heart failure) Age-related osteoporosis without current pathological fracture Atherosclerosis of aorta Atherosclerosis of other arteries Burst fracture of lumbar vertebra 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 Burst fracture of thoracic vertebra Chronic burst fracture at L1. Chest pressure Disorder of adrenal gland, unspecified Hypotension Ischemic cardiomyopathy LBBB (left bundle branch block) Other kyphosis, thoracic region Primary generalized (osteo)arthritis Pure hypercholesterolemia, unspecified Sciatica, left side Suspected congestive heart failure Surgical History Surgical History History of cataract extraction History of ovarian cystectomy History of right breast biopsy Benign pathology. History of surgery on left wrist (01/2016) Reduction stabilization of left distal radius fracture with external fixator device. Family History Family History Father Malignant neoplasm of prostate Mother Stomach cancer Sibling Autoimmune disease Sibling Amyotrophic lateral sclerosis Sibling Brain cancer Sibling Heart disease of massive [place] age 67 Social History Social History Social History: , 3 sons and one daughter. 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 Lives alone with her dog Claudio. Surrogate medical decision maker: Jair Matta, son. Code status: Full code. Smoking status: Never smoker Second hand tobacco smoke exposure: No Alcohol intake: never Substance use: never Substance use type: does not use Do You Feel Safe in your Home?: Yes Lack of Transportation: No Lack of Food: Never True Current Housing: I Have Housing Concerned About Future Housing: No Difficulty Paying Gas/Electric Bills: No Difficulty Paying for Meds: No Currently Unemployed: No
[2023-06-05 08:00] VITALS: O2SAT 95
--- NOTE | 2023-06-05 12:21 | PM.IMPN ---
Progress Note: A&P Assessment and Plan (1) Fall: Qualifiers: Encounter type: initial encounter Qualified Code(s): W19.XXXA - Unspecified fall, initial encounter Code(s): W19.XXXA - Unspecified fall, initial encounter Status: Acute (2) Rhabdomyolysis: Qualifiers: Rhabdomyolysis type: non-traumatic Qualified Code(s): M62.82 - Rhabdomyolysis Code(s): M62.82 - Rhabdomyolysis Status: Acute (3) Encephalopathy acute: Code(s): G93.40 - Encephalopathy, unspecified Status: Acute (4) MARGRET (acute kidney injury): Code(s): N17.9 - Acute kidney failure, unspecified Status: Acute (5) Elevated troponin: Code(s): R79.89 - Other specified abnormal findings of blood chemistry Status: Acute Plan 88-year-old female past medical history significant for congestive heart failure, diabetes mellitus, ischemic cardiomyopathy, left bundle-branch block dyslipidemia. patient presented to the emergency room after she was found down by family members unknown length of time. She was found to have acute kidney injury with rhabdomyolysis along with encephalopathy. After discussion with family, she was made comfort measures only. I personally spoke to patient's family this morning, as per patient wishes she does not want to be resuscitated, her family/son has decided for comfort measures only/hospice care. 1. Will continue with morphine IV p.r.n. for pain/dyspnea 2. Continue with IV and oral liquid Ativan for any anxiety/distress 3. Care coordination/hospice care to be involved for further recommendations Time Spent With Patient Time with patient: 25 - 35 minutes Subjective Date/time seen: 06/05/23 12:21 Interval history: Patient is obtunded, family at bedside Review of Systems Review of Systems: ROS unobtainable: Yes unobtainable due to medical condition Exam Const: Other: Obtunded HENMT: Mouth: Yes dry mucous membranes Eyes: Sclera: sclerae normal Resp: Other: Decreased breath sounds bilaterally Cardio: Rate: regular rate GI: GI Palp: Yes Soft to palpation Extrem: General: normal to inspection Psych: Other: Unable to assess Objective Data Vital Signs Vital Signs: Vital Signs - 24 hr 06/04/23 17:22 06/04/23 17:45 06/04/23 18:45 Temperature 97.3 F L Pulse Rate 83 76 81 Respiratory Rate 18 18 22 H Blood Pressure 117/74 106/54 L 93/76 L Pulse Oximetry 98 95 96 Oxygen Delivery 06/04/23 19:15 06/04/23 22:35 06/05/23 00:15 Temperature Pulse Rate 78 66 79 Respiratory Rate 20 14 16 Blood Pressure 101/63 99/54 L 90/50 L Pulse Oximetry 99 99 96 Oxygen Delivery 06/05/23 00:37 06/05/23 00:49 06/05/23 08:00 Temperature 97.3 F L Pulse Rate 73 Respiratory Rate 22 H Blood Pressure 93/40 L Pulse Oximetry 95 95 Oxygen Delivery Room Air Room Air Intake/Output Intake/Output: Intake & Output 06/02/23 06/03/23 06/04/23 06/05/23 23:59 23:59 23:59 23:59 Intake Total 1999 Balance 1999 Meds/Results Medications: Active Medications Generic Name Dose Route Start Last Admin Trade Name Freq PRN Reason Stop Dose Admin Lorazepam 1 mg 06/05/23 00:56 Lorazepam (*Crx) 2 Mg/Ml 30 Ml Oral Concentrate SUBLINGUAL Q6H PRN Anxiety Lorazepam 1 mg 06/05/23 12:20 Lorazepam Inj (*Crx) 2 Mg/Ml Vial IV PUSH Q3HR PRN Anxiety IF NPO Morphine Sulfate 4 mg 06/05/23 12:21 Morphine Sulfate (*Crx) 4 Mg/Ml Inj IV PUSH Q2HR PRN Pain Rated 7-10 Radiology Results: ITS Impressions Shoulder X-Ray 06/04/23 18:07 IMPRESSION: 1. Chronic widening of right acromioclavicular joint, which may be from an old acromioclavicular separation or distal clavicle resection. Hand X-Ray 06/04/23 18:09 IMPRESSION: 1. Polyarticular osteoarthritis. Head CT 06/04/23 20:00 IMPRESSION: 1. Worsened moderate nonspecific cerebral white matter disease,
--- NOTE | 2023-06-30 10:44 | PM.DS ---
DS: Admitting Diagnosis Discharge Date 06/05/23 Admitting Diagnosis Fall Comfort care DS: Discharge Diagnosis Discharge Diagnosis (1) Palliative care encounter: Code(s): Z51.5 - Encounter for palliative care Status: Acute (2) Fall: Qualifiers: Encounter type: initial encounter Qualified Code(s): W19.XXXA - Unspecified fall, initial encounter Code(s): W19.XXXA - Unspecified fall, initial encounter Status: Acute DS: Summary Hospital Course Hospital Course: 88 years old F admitted with fall, family decised for comfort measures. Pateint is being discharged to [facility]. Time Spent with Patient Time attestation: Total time spent providing and/or coordinating discharge services: Exam Narrative: Deferred Discharge Plan Discharge Consulting providers: Neftali Benitez; Clive Wagner V. Discharging Clinician: Gina Lindsey Anticipated Discharge Date/Time: 06/05/23 17:00 Patient Disposition: Hospice - Medical Facility Stand Alone Forms: General Discharge Information Discharge Medications: Discontinued aspirin [Children's Aspirin] 81 mg Tablet,Chewable 81 mg PO DAILY@0800 Qty: 30 1RF atorvastatin 40 mg Tablet 40 mg PO DAILY Qty: 30 1RF Jardiance 10 mg Tablet 10 mg PO DAILY Qty: 30 1RF furosemide 40 mg Tablet 40 mg PO DAILY Qty: 30 1RF spironolactone 25 mg Tablet 25 mg PO QAM Qty: 30 1RF Entresto 24-26 mg Tablet 1 tablet PO Q12HR Qty: 60 1RF metoprolol succinate 25 mg tablet extended release 24 hr 12.5 mg PO DAILY Qty: 30 1RF Date of admission: 06/04/23 23:55 Primary Care Provider: Sea Burgos Admitting Provider: Dilia Godinez V. Attending physician on admission: Gina Lindsey Condition: Serious
== END 2023-06-05 14:57 | disposition hospice, inpatient (51) | DRG 557 ==
LOC: ANHED 23:15 → ANH3MEDSUR 06-05 00:20
PROVIDERS: Admitting Provider Internal Medicine; Emergency Provider Student in an Organized Health Care Education/Training Program; PCP Family Medicine; Visit Provider Internal Medicine
DX: M62.82 Rhabdomyolysis (principal); I50.21 Acute systolic (congestive) heart failure; G93.40 Encephalopathy, unspecified; N17.9 Acute kidney failure, unspecified; I25.5 Ischemic cardiomyopathy; S51.012A Laceration without foreign body of left elbow, initial encounter; I95.9 Hypotension, unspecified; I44.7 Left bundle-branch block, unspecified; E78.00 Pure hypercholesterolemia, unspecified; E11.9 Type 2 diabetes mellitus without complications; E78.5 Hyperlipidemia, unspecified; M15.9 Polyosteoarthritis, unspecified; W19.XXXA Unspecified fall, initial encounter; Z66 Do not resuscitate; Z88.0 Allergy status to penicillin; Z87.891 Personal history of nicotine dependence; Z79.84 Long term (current) use of oral hypoglycemic drugs
CPT/HCPCS: 36415; 70450; 71250; 72125; 72128; 72131; 73030; 73130; 74176; 80053; 81001; 82550; 83605; 83690; 84484; 85025; 85610; 85730; 86140; 87040; 93005; 96360; 96361; 99285; A9270; J2270; J7120

== ENCOUNTER 2023-06-05 15:05 | HOS | payer OTHER, MEDICARE, SELFPAY ==
[2023-06-05] MEDS: HYDROmorphone HCL/PF (*CRX) 50 MG in SODIUM CHLORIDE 0.9% IV 95 ML IV CONT (16:06)
--- NOTE | 2023-06-05 17:12 | PM.IMHP ---
H&P: HPI History of Present Illness Date/Time: 06/05/23 17:12 Chief Complaint: Uncontrolled pain and restlessness. Narrative: 88-year-old female was living independently in her own home. Her daughter talked to her in the afternoon of 06/03/2023. However when her son went to check on her during the afternoon of 06/04/2023 he found her on the floor in her apartment and moaning otherwise unresponsive. She was brought to the emergency department where she was found to have acute kidney injury rhabdomyolysis elevated troponins. CT from head to pelvis yielded no acute findings. Because of the kidney failure encephalopathy and previously expressed wishes her family opted for comfort care. Because of continued intermittent discomfort and restlessness she was admitted to inpatient hospice service for symptom management. Review of Systems Review of Systems: ROS unobtainable: Yes unobtainable due to medical condition PMFSH Past Medical History Medical History Abnormal stress test Acute systolic CHF (congestive heart failure) Age-related osteoporosis without current pathological fracture Atherosclerosis of aorta Atherosclerosis of other arteries Burst fracture of lumbar vertebra 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 Burst fracture of thoracic vertebra Chronic burst fracture at L1. Chest pressure Disorder of adrenal gland, unspecified Hypotension Ischemic cardiomyopathy LBBB (left bundle branch block) Other kyphosis, thoracic region Primary generalized (osteo)arthritis Pure hypercholesterolemia, unspecified Sciatica, left side Suspected congestive heart failure Surgical History Surgical History History of cataract extraction History of ovarian cystectomy History of right breast biopsy Benign pathology. History of surgery on left wrist (01/2016) Reduction stabilization of left distal radius fracture with external fixator device. Family History Family History Father Malignant neoplasm of prostate Mother Stomach cancer Sibling Autoimmune disease Sibling Amyotrophic lateral sclerosis Sibling Brain cancer Sibling Heart disease of massive [place] age 67 Social History Social History (Updated 06/05/23 @ 17:14 by Daniel Benavides MD) Social History: , 3 sons and one daughter. 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 Lives alone with her dog Claudio. Surrogate medical decision maker: Jair Leffert, son. Code status: DNR. 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 Spiritual care concerns: No Meds Home Medications and Allergies Home Medications Medication Instructions Recorded Confirmed Type aspirin 81 mg chewable tablet 81 mg PO DAILY@0800 #30 tabs 04/10/23 06/05/23 Rx (Children's Aspirin) atorvastatin 40 mg tablet 40 mg PO DAILY #30 tabs 04/10/23 06/05/23 Rx empagliflozin 10 mg tablet 10 mg PO DAILY #30 tabs 04/10/23 06/05/23 Rx (Jardiance) furosemide 40 mg tablet 40 mg PO DAILY #30 tabs 04/10/23 06/05/23 Rx metoprolol succinate 25 mg 12.5 mg PO DAILY #30 tabs 04/10/23 06/05/23 Rx tablet,extended release 24 hr sacubitril 24 mg-valsartan 26 mg 1 tablet PO Q12HR #60 tabs 04/10/23 06/05/23 Rx tablet (Entresto) spironolacto
[2023-06-05 20:56] VITALS: BP 104/49; PULSE 83; RESP 20; TEMP 36.2; O2SAT 86
[2023-06-06 08:00] VITALS: BP 104/50; PULSE 93; RESP 20; TEMP 35.8; O2SAT 92
--- NOTE | 2023-06-06 08:46 | PC.NURSE ---
0846 patient sedated, and comfortable, no signs of distress. no family at bedside. Dilaudid pump running at 0.25mg/ 0.5ML per hr.
[2023-06-06 16:03] VITALS: PULSE 60; RESP 20
[2023-06-06] MEDS: HYDROmorphone HCL/PF (*CRX) 50 MG in SODIUM CHLORIDE 0.9% IV 95 ML IV CONT (16:03)
--- NOTE | 2023-06-06 19:22 | PM.IMPN ---
Progress Note: A&P Assessment and Plan (1) Palliative care encounter: Code(s): Z51.5 - Encounter for palliative care Status: Acute Assessment and Plan: Meet inpatient hospice criteria due to requiring continuous IV hydromorphone for control of discomfort and restlessness. P.r.n. palliative regimen ordered. 06/06/2023 discussed care and prognosis with family at bedside. (2) Encephalopathy acute: Code(s): G93.40 - Encephalopathy, unspecified Status: Acute (3) Rhabdomyolysis: Qualifiers: Rhabdomyolysis type: non-traumatic Qualified Code(s): M62.82 - Rhabdomyolysis Code(s): M62.82 - Rhabdomyolysis Status: Acute (4) Fall: Qualifiers: Encounter type: initial encounter Qualified Code(s): W19.XXXA - Unspecified fall, initial encounter Code(s): W19.XXXA - Unspecified fall, initial encounter Status: Acute (5) MARGRET (acute kidney injury): Code(s): N17.9 - Acute kidney failure, unspecified Status: Acute (6) Elevated troponin: Code(s): R79.89 - Other specified abnormal findings of blood chemistry Status: Acute (7) Ischemic cardiomyopathy: Code(s): I25.5 - Ischemic cardiomyopathy Status: Acute Subjective Date/time seen: 06/06/23 19:22 Interval history: Remains comfortable today. Review of Systems Review of Systems: ROS unobtainable: Yes unobtainable due to medical condition Exam Narrative: HEENT: sclerae nonicteric, pharyngeal mucosa pink and intact NECK: No JVD CHEST: Clear to auscultation. Normal effort. HEART: NL S1/S2, regular, no murmur. ABDOMEN: BS hypoactive, soft, nontender, no mass, no bruits. EXTREMITIES: No edema. NEUROLOGIC: CN intact and symmetric to inspection. MUSCULOSKELETAL: No gross deformity to visual inspection. PSYCH: Unresponsive to verbal or tactile stimuli. . Objective Data Vital Signs Vital Signs: Vital Signs - 24 hr 06/05/23 20:56 06/05/23 20:00 06/06/23 08:00 Temperature 97.1 F L 96.4 F L Pulse Rate 83 93 Respiratory Rate 20 20 Blood Pressure 104/49 L 104/50 L Pulse Oximetry 86 L 92 Oxygen Delivery Room Air 06/06/23 08:33 06/06/23 08:00 06/06/23 16:03 Temperature Pulse Rate 60 Respiratory Rate 20 Blood Pressure Pulse Oximetry Oxygen Delivery Room Air Room Air 06/06/23 16:03 Temperature Pulse Rate 60 Respiratory Rate 20 Blood Pressure Pulse Oximetry Oxygen Delivery Intake/Output Intake/Output: Intake & Output 06/03/23 06/04/23 06/05/23 06/06/23 23:59 23:59 23:59 23:59 Intake Total 12 Balance 12 Meds/Results Medications: Active Medications Generic Name Dose Route Start Last Admin Trade Name Freq PRN Reason Stop Dose Admin Artificial Tears 0 drop 06/05/23 15:40 Artificial Tears Ophth Soln 15 Ml Bottle EACH EYE Q12H PRN Dry Eye(s) Bisacodyl 10 mg 06/05/23 15:40 Bisacodyl 10 Mg Suppository RECTAL DAILY PRN Constipation Glycopyrrolate 0.1 mg 06/05/23 15:40 Glycopyrrolate Inj (*Sp) 0.2 Mg/Ml Vial IV PUSH Q4H PRN secretions Hydromorphone HCl 0.5 mg 06/05/23 15:41 Hydromorphone Hcl Inj (*Crx) 1 Mg/Ml Syr IV PUSH Q2H PRN Pain/SOB Hydromorphone HCl 50 mg/ 100 mls @ 0.5 mls/hr 06/05/23 16:00 06/06/23 16:03 Sodium Chloride IV CONT 0.25 mg/hr .Q24H FARZANA 0.5 mls/hr Administration 0.25 MG/HR Prochlorperazine Edisylate 10 mg 06/05/23 15:40 Prochlorperazine Edisylate 10 Mg/2 Ml Vial IV PUSH Q6H PRN Nausea And Vomiting
[2023-06-06 20:00] VITALS: BP 91/53; PULSE 110; RESP 10; TEMP 35.9; O2SAT 84
[2023-06-07] MEDS: HYDROmorphone HCL INJ (*CRX) 1 MG/ML SYR 0.5 MG IV PUSH (02:52)
--- NOTE | 2023-06-08 17:16 | P.DN_ITS ---
Discharge Summary Date and Time Date of : 06/07/23 Time of : 03:15 Provider Pronounced By: Denise Ozuna Probable Cause of Probable Cause of : Encephalopathy secondary to rhabdomyolysis with acute kidney injury secondary to fall from standing height Summary Hospital Course: Admitted inpatient hospice service for symptom management. Medications titrated to comfort. Mrs. Matta peacefully. Additional Data Confirmation of as documented by pronouncing clinician: Pupillary Reflex, Palpable Pulses, Response to Stimuli, Heart Tones and Breath Sounds Name of Provider Notified: Daniel maloney Time Provider Notified: 03:47 Research And Development Tester Notified: Yes Date [facility] Notified of : 06/07/23 Time [facility] Notified of : 03:28
== END 2023-06-07 03:15 | disposition expired | DRG 951 ==
LOC: ANH3MEDSUR 15:17
PROVIDERS: Admitting Provider Internal Medicine; PCP Family Medicine; Visit Provider Internal Medicine
DX: Z51.5 Encounter for palliative care (principal); N17.9 Acute kidney failure, unspecified; G93.40 Encephalopathy, unspecified; M62.82 Rhabdomyolysis; I50.22 Chronic systolic (congestive) heart failure; I95.9 Hypotension, unspecified; I25.5 Ischemic cardiomyopathy
CPT/HCPCS: A9270; J1170